=== PATIENT | female | born 1960 | race Caucasian/White ===

== ENCOUNTER 2020-03-01 13:10 | Outpatient (CLI) | payer OTHER, SELFPAY ==
[2020-03-01 13:24] LABS: Basophils Absolute Auto 0.1 K/mm3 (0.0-0.1); Basophils Percent Auto 1.3 % (0.2-1.2); Eosinophils Absolute Auto 0.4 K/mm3 (0-0.3); Hematocrit 45.4 % (37.0-47.0); Hemoglobin 14.9 g/dL (12.0-15.0); Lymphocytes Absolute Auto 1.12 K/mm3 (0.9-3.2); Lymphocytes Percent Auto 28.6 % (18.3-44.2); Mean Corpuscular HGB Conc 32.8 g/dl (32-36); Mean Corpuscular Hemoglobin 35.4 pg (26-34); Mean Corpuscular Volume 107.8 fl (80-100); Monocytes Absolute Auto 0.4 K/mm3 (0.1-0.6); Monocytes Percent Auto 10.7 % (2.6-8.5); Neutrophils Absolute Auto 1.9 K/mm3 (1.3-6.7); Neutrophils Percent Auto 49.4 % (45.5-73.1); Platelet Count Result 219 k/mm3 (150-375); Red Blood Count 4.21 M/mm3 (4.2-5.4); Red Cell Distribution Width 12.3 % (11.5-14.5); White Blood Count 3.9 K/mm3 (4.5-10.0)
[2020-03-01 16:38] LABS: Potassium 4.1 mmol/L (3.4-5.0)
[2020-03-01 16:42] LABS: Alanine Aminotransferase 170 U/L (4-35); Albumin Level 4.6 g/dL (3.5-5.1); Alkaline Phosphatase 75 U/L (38-126); Aspartate Amino Transferase 48 U/L (14-36); Bilirubin,Total 0.4 mg/dL (0.2-1.3); Blood Urea Nitrogen 15 mg/dL (7-17); Calcium 9.8 mg/dL (8.4-10.2); Carbon Dioxide 26 mmol/L (22-30); Chloride 104 mmol/L (98-107); Estimated Glomerular Filt Rate > 60; Glucose 109 mg/dL (65-105); Sodium 137 mmol/L (137-145)
[2020-03-01 17:03] LABS: Carcinoembryonic Antigen 2.5 ng/mL (0.0-3.0)
[2020-03-01 17:26] LABS: Cholesterol 216 mg/dL (0-200); HDL Direct 104 mg/dL; Triglycerides 78 mg/dL (<150)
[2020-03-01 17:39] LABS: LDL Cholesterol Direct 94 mg/dL
== END 2020-03-01 13:11 | disposition home or self-care (01) ==
LOC: ANHLAB 13:12
PROVIDERS: Family Medicine; Visit Provider Internal Medicine Hematology & Oncology
DX: E78.5 Hyperlipidemia, unspecified (principal); C20 Malignant neoplasm of rectum
CPT/HCPCS: 36415; 80053; 80061; 82378; 85025

== ENCOUNTER 2020-06-03 11:28 | Outpatient (CLI) | payer OTHER, SELFPAY ==
[2020-06-03 11:45] LABS: Basophils Absolute Auto 0.1 K/mm3 (0.0-0.1); Basophils Percent Auto 1.8 % (0.2-1.2); Eosinophils Absolute Auto 0.3 K/mm3 (0-0.3); Eosinophils Percent Auto 11.3 % (0-4.4); Hematocrit 44.2 % (37.0-47.0); Hemoglobin 14.8 g/dL (12.0-15.0); Immature Granulocyte Absolute 0.01 K/mm3 (0.00-0.031); Immature Granulocyte Percent A 0.4 % (0-0.5); Lymphocytes Absolute Auto 1.08 K/mm3 (0.9-3.2); Lymphocytes Percent Auto 38.2 % (18.3-44.2); Mean Corpuscular HGB Conc 33.5 g/dl (32-36); Mean Corpuscular Hemoglobin 33.6 pg (26-34); Mean Corpuscular Volume 100.5 fl (80-100); Mean Platelet Volume 9.2 fl (7.4-10.4); Monocytes Absolute Auto 0.4 K/mm3 (0.1-0.6); Monocytes Percent Auto 13.1 % (2.6-8.5); Neutrophils Percent Auto 35.2 % (45.5-73.1); Platelet Count Result 146 k/mm3 (150-375); White Blood Count 2.8 K/mm3 (4.5-10.0)
[2020-06-03 16:38] LABS: Alanine Aminotransferase 30 U/L (4-35); Albumin Level 4.5 g/dL (3.5-5.1); Alkaline Phosphatase 62 U/L (38-126); Anion Gap 14.2 mmol/L (7-16); Aspartate Amino Transferase 57 U/L (14-36); Bilirubin,Total 0.5 mg/dL (0.2-1.3); Blood Urea Nitrogen 14 mg/dL (7-17); Calcium 9.6 mg/dL (8.4-10.2); Carbon Dioxide 29 mmol/L (22-30); Chloride 102 mmol/L (98-107); Estimated Glomerular Filt Rate > 60; Glucose 98 mg/dL (65-105); Potassium 4.2 mmol/L (3.4-5.0); Sodium 141 mmol/L (137-145)
[2020-06-03 17:06] LABS: Carcinoembryonic Antigen 2.3 ng/mL (0.0-3.0)
== END 2020-06-03 11:29 | disposition home or self-care (01) ==
PROVIDERS: PCP Family Medicine; Visit Provider Internal Medicine Hematology & Oncology
DX: E78.5 Hyperlipidemia, unspecified (principal)
CPT/HCPCS: 36415; 80053; 82378; 85025

== ENCOUNTER → 2020-06-18 10:45 | Outpatient (CLI) | payer OTHER, SELFPAY ==
--- NOTE | ~2020-06-18 | XR_ITS ---
EXAMINATION: XR knee RT 2V DATE: 06/18/2020 11:03 INDICATION: Right knee pain. TECHNIQUE: 3 views of right knee were obtained. COMPARISON: None. FINDINGS: Bone alignment is normal. No fracture. There is mild osteoarthritis of patellofemoral rossy rtment. There is a small knee joint effusion. There is prepatellar soft tissue swelling. IMPRESSION: 1. Mild right knee osteoarthritis. 2. Small right knee joint effusion. Reviewed, dictated and finalized at location B.
== END ==
PROVIDERS: PCP Nurse Practitioner Family; Visit Provider Nurse Practitioner Family
DX: M17.11 Unilateral primary osteoarthritis, right knee (principal); M25.461 Effusion, right knee
CPT/HCPCS: 73560

== ENCOUNTER 2020-09-22 10:07 | Outpatient (CLI) | payer OTHER, SELFPAY ==
[2020-09-22 10:29] LABS: Eosinophils Absolute Auto 0.4 K/mm3 (0-0.3); Eosinophils Percent Auto 9.5 % (0-4.4); Hematocrit 44.5 % (37.0-47.0); Hemoglobin 14.7 g/dL (12.0-15.0); Immature Granulocyte Absolute 0.01 K/mm3 (0.00-0.031); Immature Granulocyte Percent A 0.2 % (0-0.5); Lymphocytes Absolute Auto 0.97 K/mm3 (0.9-3.2); Lymphocytes Percent Auto 23.7 % (18.3-44.2); Mean Corpuscular Hemoglobin 36.2 pg (26-34); Mean Corpuscular Volume 109.6 fl (80-100); Mean Platelet Volume 10.5 fl (7.4-10.4); Monocytes Absolute Auto 0.3 K/mm3 (0.1-0.6); Monocytes Percent Auto 7.1 % (2.6-8.5); Neutrophils Absolute Auto 2.4 K/mm3 (1.3-6.7); Neutrophils Percent Auto 58.5 % (45.5-73.1); Platelet Count Result 163 k/mm3 (150-375); Red Blood Count 4.06 M/mm3 (4.2-5.4); Red Cell Distribution Width 12.5 % (11.5-14.5); White Blood Count 4.1 K/mm3 (4.5-10.0)
[2020-09-22 17:53] LABS: Alanine Aminotransferase 105 U/L (4-35); Albumin Level 4.3 g/dL (3.5-5.1); Alkaline Phosphatase 112 U/L (38-126); Anion Gap 9 mmol/L (8-16); Aspartate Amino Transferase 128 U/L (14-36); Bilirubin,Total 0.6 mg/dL (0.2-1.3); Blood Urea Nitrogen 11 mg/dL (7-17); Calcium 10.1 mg/dL (8.4-10.2); Carbon Dioxide 28 mmol/L (22-30); Chloride 102 mmol/L (98-107); Estimated Glomerular Filt Rate > 60; Glucose 117 mg/dL (65-105); Potassium 4.6 mmol/L (3.4-5.0); Sodium 139 mmol/L (137-145)
[2020-09-22 18:21] LABS: Carcinoembryonic Antigen 3.2 ng/mL (0.0-3.0)
[2020-09-22 18:28] LABS: Hepatitis B Surface Antigen Negative (Negative)
[2020-09-22 18:33] LABS: HAV RESULT Negative (Negative); Hepatitis B Core IgM Result Negative (Negative)
[2020-09-22 18:45] LABS: Hepatitis C Virus Antibody Negative (Negative)
== END 2020-09-22 10:08 | disposition home or self-care (01) ==
LOC: ANHLAB 10:09
PROVIDERS: PCP Nurse Practitioner Family; Visit Provider Internal Medicine Hematology & Oncology
DX: C20 Malignant neoplasm of rectum (principal); R94.5 Abnormal results of liver function studies
CPT/HCPCS: 36415; 80053; 80074; 82378; 85025

== ENCOUNTER 2020-12-02 10:49 | Outpatient (CLI) | payer OTHER, SELFPAY ==
[2020-12-02 11:15] LABS: Basophils Percent Auto 1.1 % (0.2-1.2); Eosinophils Absolute Auto 0.5 K/mm3 (0-0.3); Eosinophils Percent Auto 14.2 % (0-4.4); Hematocrit 45.5 % (37.0-47.0); Hemoglobin 15.2 g/dL (12.0-15.0); Immature Granulocyte Absolute 0.01 K/mm3 (0.00-0.031); Immature Granulocyte Percent A 0.3 % (0-0.5); Lymphocytes Absolute Auto 1.16 K/mm3 (0.9-3.2); Lymphocytes Percent Auto 30.5 % (18.3-44.2); Mean Corpuscular HGB Conc 33.4 g/dl (32-36); Mean Corpuscular Hemoglobin 34.2 pg (26-34); Mean Corpuscular Volume 102.5 fl (80-100); Mean Platelet Volume 10.2 fl (7.4-10.4); Monocytes Absolute Auto 0.3 K/mm3 (0.1-0.6); Monocytes Percent Auto 7.6 % (2.6-8.5); Neutrophils Absolute Auto 1.8 K/mm3 (1.3-6.7); Neutrophils Percent Auto 46.3 % (45.5-73.1); Platelet Count Result 172 k/mm3 (150-375); Red Blood Count 4.44 M/mm3 (4.2-5.4); Red Cell Distribution Width 12.1 % (11.5-14.5); White Blood Count 3.8 K/mm3 (4.5-10.0)
[2020-12-02 13:43] LABS: Alanine Aminotransferase 30 U/L (4-35); Albumin Level 4.1 g/dL (3.5-5.1); Alkaline Phosphatase 57 U/L (38-126); Anion Gap 6 mmol/L (8-16); Aspartate Amino Transferase 38 U/L (14-36); Bilirubin,Total 0.5 mg/dL (0.2-1.3); Blood Urea Nitrogen 16 mg/dL (7-17); Calcium 9.8 mg/dL (8.4-10.2); Carbon Dioxide 28 mmol/L (22-30); Chloride 104 mmol/L (98-107); Estimated Glomerular Filt Rate > 60; Glucose 135 mg/dL (65-105); Sodium 138 mmol/L (137-145)
[2020-12-02 14:12] LABS: Carcinoembryonic Antigen 2.5 ng/mL (0.0-3.0)
== END 2020-12-02 10:50 | disposition home or self-care (01) ==
LOC: ANHLAB 10:50
PROVIDERS: PCP Nurse Practitioner Family; Visit Provider Internal Medicine Hematology & Oncology
DX: C20 Malignant neoplasm of rectum (principal)
CPT/HCPCS: 36415; 80053; 82378; 85025

== ENCOUNTER 2021-03-01 13:07 | Outpatient (CLI) | payer OTHER, SELFPAY | END 2021-03-01 13:08 | disposition home or self-care (01) | LOC: ANHCOVIDVC 13:07 | PROVIDERS: PCP Internal Medicine | DX: Z23 Encounter for immunization (principal) | CPT/HCPCS: 0001A; 91300 ==

== ENCOUNTER 2021-03-22 12:45 | Outpatient (CLI) | payer OTHER, SELFPAY | END 2021-03-22 12:46 | disposition home or self-care (01) | LOC: ANHCOVIDVC 12:46 | PROVIDERS: PCP Internal Medicine | DX: Z23 Encounter for immunization (principal) | CPT/HCPCS: 0002A; 91300 ==

== ENCOUNTER 2021-05-30 14:10 | Outpatient (CLI) | payer OTHER, SELFPAY ==
[2021-05-30 14:29] LABS: Basophils Absolute Auto 0.1 K/mm3 (0.0-0.1); Basophils Percent Auto 1.3 % (0.2-1.2); Eosinophils Absolute Auto 0.4 K/mm3 (0-0.3); Eosinophils Percent Auto 9.6 % (0-4.4); Hematocrit 42.6 % (37.0-47.0); Hemoglobin 14.5 g/dL (12.0-15.0); Lymphocytes Absolute Auto 1.31 K/mm3 (0.9-3.2); Lymphocytes Percent Auto 33.1 % (18.3-44.2); Mean Corpuscular Hemoglobin 32.4 pg (26-34); Mean Corpuscular Volume 95.1 fl (80-100); Mean Platelet Volume 9.3 fl (7.4-10.4); Monocytes Absolute Auto 0.3 K/mm3 (0.1-0.6); Monocytes Percent Auto 8.1 % (2.6-8.5); Neutrophils Absolute Auto 1.9 K/mm3 (1.3-6.7); Neutrophils Percent Auto 47.9 % (45.5-73.1); Platelet Count Result 174 k/mm3 (150-375); Red Blood Count 4.48 M/mm3 (4.2-5.4)
[2021-05-30 16:48] LABS: Alanine Aminotransferase 45 U/L (4-35); Albumin Level 4.2 g/dL (3.5-5.1); Alkaline Phosphatase 72 U/L (38-126); Anion Gap 8 mmol/L (8-16); Aspartate Amino Transferase 56 U/L (14-36); Bilirubin,Total 0.3 mg/dL (0.2-1.3); Blood Urea Nitrogen 13 mg/dL (7-17); Calcium 9.4 mg/dL (8.4-10.2); Carbon Dioxide 28 mmol/L (22-30); Chloride 99 mmol/L (98-107); Estimated Glomerular Filt Rate > 60; Glucose 103 mg/dL (65-110); Potassium 4.2 mmol/L (3.4-5.0); Sodium 135 mmol/L (137-145)
[2021-05-30 17:15] LABS: Carcinoembryonic Antigen 2.1 ng/mL (0.0-3.0)
== END 2021-05-30 14:11 | disposition home or self-care (01) ==
LOC: ANHLAB 14:16
PROVIDERS: PCP Internal Medicine; Visit Provider Internal Medicine Hematology & Oncology
DX: C20 Malignant neoplasm of rectum (principal)
CPT/HCPCS: 36415; 80053; 82378; 85025

== ENCOUNTER 2021-08-02 13:47 | Outpatient (CLI) | payer OTHER, SELFPAY ==
--- NOTE | ~2021-08-02 | DEXA_ITS ---
Bone Density Report Name: Nisreen Gan Age: 61 Sex: Female Ethnicity: White Date of : 1960 Indication: postmenopausal; height loss; prior fracture; cancer; Referring Provider: Janet Wong Study: Bone densitometry was performed. Exam Date: August 02, 2021 Accession number: [id number] Bone Density: Region BMD T-score Z-score Classification AP Spine (L1-L4) 1.224 1.6 3.3 Normal Femoral Neck (Left) 0.726 -1.1 0.3 Osteopenia Total Hip (Left) 0.917 -0.2 0.9 Normal Total Hip Bilateral Avg 0.920 -0.2 0.9 Normal Femoral Neck (Right) 0.738 -1.0 0.4 Normal Total Hip (Right) 0.922 -0.2 1.0 Normal World Health Organization criteria for BMD impression classify patients as: Normal (T-score at or above -1.0), Osteopenia (T-score between -1.0 and -2.5), or Osteoporosis (T-score at or below -2.5). 10-year Fracture Risk(1): Major Osteoporotic Fracture 12% Hip Fracture 0.9% Reported Risk Factors: [place] (), Neck BMD=0.726, BMI=21.6, previous fracture (1) FRAX(R) Version 3.08. Fracture probability calculated for an untreated patient. Fracture probability may be lower if the patient has received treatment. Clinical Information Provided by Patient: Has had a low trauma fracture Has used the following medications: Vitamin D Has the following medical conditions: Cancer Patient maximum height was 68 Menopause Age: 48 Onset of menses at age 11 Number of children 1 Impression: The patient has low bone mass, based on the Left Femoral Neck T-score. The patient has an estimated ten-year risk of hip fracture of 0.9% and an estimated ten-year risk of major fracture of 12%, based on the WHO FRAX algorithm. The patient has risk factors, including: previous fracture. Discussion: BONE DENSITY IS LOW AT ONE OR MORE SKELETAL SITES. This patient's lowest T-score is low at one or more skeletal sites. It meets the World Health Organization's (WHO) criteria for ?low bone mass? (T-score between -1.0 and -2.5). The patient's 10-year risk of fracture as calculated by FRAX is less than the threshold where pharmacological therapy is recommended by the National Osteoporosis Foundation (NOF). However, all treatment decisions require clinical judgment and consideration of individual patient factors, including patient preferences, comorbidities, previous drug use, risk factors not captured in the FRAX model (e.g., frailty, falls, vitamin D deficiency, increased bone turnover, interval significant decline in bone density) and possible under or overestimation of fracture risk by FRAX. The patient should follow a healthful lifestyle (good nutrition with adequate calcium and vitamin D, and appropriate weight-bearing exercise). Follow-Up: Consider repeating this study in 2 to 3 years to reassess this patient's status, or sooner if
--- NOTE | ~2021-08-02 | MM_ITS ---
CORRECTED REPORT EXAMINATION CHANGED TO MM screening [facility] 08/03/2021 sef EXAMINATION: MM screening [facility] BI w [facility] HISTORY: Screening TECHNIQUE: Craniocaudal and mediolateral oblique 3-D tomosynthesis images were obtained and synthetic 2-D images were generated. CAD analysis was submitted and interpreted. COMPARISON: 08/19/2018 BREAST PARENCHYMAL COMPOSITION: There are scattered areas of fibroglandular density. FINDINGS: There is no evidence of suspicious mass, calcification, or architectural distortion to suggest malignancy in either breast. There has been no suspicious interval change. IMPRESSION: 1. No mammographic evidence of malignancy. 2. Recommend routine screening mammography in one year. BI-RADS Category 1: Negative Reviewed, dictated and finalized at location A. MTDD
== END 2021-08-02 13:48 | disposition home or self-care (01) ==
LOC: ANHIMG 13:50
PROVIDERS: PCP Internal Medicine; Visit Provider Nurse Practitioner Family
DX: Z12.31 Encounter for screening mammogram for malignant neoplasm of breast (principal); Z78.0 Asymptomatic menopausal state; M85.852 Other specified disorders of bone density and structure, left thigh
CPT/HCPCS: 77063; 77067; 77080

== ENCOUNTER 2022-03-07 12:45 | Outpatient (CLI) | payer OTHER, SELFPAY ==
[2022-03-07 13:08] LABS: Basophils Absolute Auto 0.1 K/mm3 (0.0-0.1); Basophils Percent Auto 0.9 % (0.2-1.2); Eosinophils Absolute Auto 0.5 K/mm3 (0-0.3); Eosinophils Percent Auto 8.4 % (0-4.4); Hemoglobin 15.3 g/dL (12.0-15.0); Immature Granulocyte Absolute 0.01 K/mm3 (0.00-0.031); Immature Granulocyte Percent A 0.2 % (0-0.5); Lymphocytes Absolute Auto 1.05 K/mm3 (0.9-3.2); Lymphocytes Percent Auto 19.6 % (18.3-44.2); Mean Corpuscular HGB Conc 31.9 g/dl (32-36); Mean Corpuscular Hemoglobin 33.5 pg (26-34); Monocytes Absolute Auto 0.4 K/mm3 (0.1-0.6); Monocytes Percent Auto 7.8 % (2.6-8.5); Neutrophils Absolute Auto 3.4 K/mm3 (1.3-6.7); Neutrophils Percent Auto 63.1 % (45.5-73.1); Platelet Count Result 183 k/mm3 (150-375); Red Blood Count 4.57 M/mm3 (4.2-5.4); Red Cell Distribution Width 13.6 % (11.5-14.5); White Blood Count 5.4 K/mm3 (4.5-10.0)
[2022-03-07 17:39] LABS: Alanine Aminotransferase 28 U/L (4-35); Albumin Level 4.7 g/dL (3.5-5.1); Alkaline Phosphatase 57 U/L (38-126); Anion Gap 6 mmol/L (8-16); Aspartate Amino Transferase 41 U/L (14-36); Bilirubin,Total 0.3 mg/dL (0.2-1.3); Blood Urea Nitrogen 11 mg/dL (7-17); Calcium 9.9 mg/dL (8.4-10.2); Carbon Dioxide 26 mmol/L (22-30); Chloride 108 mmol/L (98-107); Estimated Glomerular Filt Rate > 60; Glucose 116 mg/dL (65-110); Potassium 4.9 mmol/L (3.4-5.0); Sodium 140 mmol/L (137-145)
[2022-03-07 18:24] LABS: Carcinoembryonic Antigen 1.9 ng/mL (0.0-3.0)
== END 2022-03-07 12:46 | disposition home or self-care (01) ==
LOC: ANHLAB 12:46
PROVIDERS: PCP Internal Medicine; Visit Provider Internal Medicine Hematology & Oncology
DX: C20 Malignant neoplasm of rectum (principal)
CPT/HCPCS: 36415; 80053; 82378; 85025

== ENCOUNTER 2022-10-17 14:46 | Outpatient (CLI) | payer OTHER, SELFPAY ==
--- NOTE | ~2022-10-17 | MM_ITS ---
EXAMINATION: MM screening [facility] HISTORY: Screening TECHNIQUE: Craniocaudal and mediolateral oblique 3-D tomosynthesis images were obtained and synthetic 2-D images were generated. CAD analysis was submitted and interpreted. COMPARISON: Comparison to multiple prior studies sequentially, with oldest reviewed study dated 08/05. BREAST PARENCHYMAL COMPOSITION: There are scattered areas of fibroglandular density. FINDINGS: There is no evidence of suspicious mass, calcification, or architectural distortion to sugg est malignancy in either breast. There has been no suspicious interval change. IMPRESSION: 1. No mammographic evidence of malignancy. 2. Recommend routine screening mammography in one year. BI-RADS Category 1: Negative Reviewed, dictated and finalized at location B. FABRICATOR
== END 2022-10-17 14:47 | disposition home or self-care (01) ==
PROVIDERS: PCP Family Medicine; Visit Provider Nurse Practitioner Family
DX: Z12.31 Encounter for screening mammogram for malignant neoplasm of breast (principal)
CPT/HCPCS: 77063; 77067

== ENCOUNTER 2022-12-11 12:39 | Outpatient (CLI) | payer OTHER, SELFPAY ==
[2022-12-11 12:52] LABS: Basophils Absolute Auto 0.1 K/mm3 (0.0-0.1); Basophils Percent Auto 1.1 % (0.2-1.2); Eosinophils Absolute Auto 0.4 K/mm3 (0-0.3); Eosinophils Percent Auto 7.6 % (0-4.4); Hematocrit 45.3 % (37.0-47.0); Hemoglobin 15.4 g/dL (12.0-15.0); Immature Granulocyte Absolute 0.02 K/mm3 (0.00-0.031); Immature Granulocyte Percent A 0.4 % (0-0.5); Lymphocytes Percent Auto 27.9 % (18.3-44.2); Mean Corpuscular Hemoglobin 30.9 pg (26-34); Mean Platelet Volume 9.6 fl (7.4-10.4); Monocytes Absolute Auto 0.4 K/mm3 (0.1-0.6); Monocytes Percent Auto 7.4 % (2.6-8.5); Neutrophils Percent Auto 55.6 % (45.5-73.1); Platelet Count Result 213 k/mm3 (150-375); Red Blood Count 4.98 M/mm3 (4.2-5.4); White Blood Count 5.4 K/mm3 (4.5-10.0)
[2022-12-11 15:44] LABS: Alanine Aminotransferase 23 U/L (6-35); Albumin Level 4.4 g/dL (3.5-5.1); Alkaline Phosphatase 59 U/L (38-126); Anion Gap 7 mmol/L (8-16); Aspartate Amino Transferase 30 U/L (14-36); Bilirubin,Total 0.6 mg/dL (0.2-1.3); Blood Urea Nitrogen 14 mg/dL (7-17); Calcium 9.6 mg/dL (8.4-10.2); Carbon Dioxide 31 mmol/L (22-30); Chloride 103 mmol/L (98-107); Estimated Glomerular Filt Rate > 60; Glucose 100 mg/dL (65-110); Potassium 4.6 mmol/L (3.4-5.0); Sodium 141 mmol/L (137-145)
[2022-12-11 16:09] LABS: Carcinoembryonic Antigen 1.8 ng/mL (0.0-3.0)
== END 2022-12-11 12:40 | disposition home or self-care (01) ==
LOC: ANHLAB 12:41
PROVIDERS: PCP Family Medicine; Visit Provider Internal Medicine Hematology & Oncology
DX: C20 Malignant neoplasm of rectum (principal)
CPT/HCPCS: 36415; 80053; 82378; 85025

== ENCOUNTER 2023-12-03 12:54 | Outpatient (CLI) | payer MEDICARE, OTHER, SELFPAY ==
[2023-12-03 13:16] LABS: Basophils Absolute Auto 0.1 K/mm3 (0.0-0.1); Basophils Percent Auto 1.1 % (0.2-1.2); Eosinophils Absolute Auto 0.3 K/mm3 (0-0.3); Hematocrit 45.6 % (37.0-47.0); Hemoglobin 15.4 g/dL (12.0-15.0); Immature Granulocyte Absolute 0.01 K/mm3 (0.00-0.031); Immature Granulocyte Percent A 0.2 % (0-0.5); Lymphocytes Absolute Auto 1.32 K/mm3 (0.9-3.2); Lymphocytes Percent Auto 23.8 % (18.3-44.2); Mean Corpuscular HGB Conc 33.8 g/dl (32-36); Mean Corpuscular Hemoglobin 32.3 pg (26-34); Mean Corpuscular Volume 95.6 fl (80-100); Mean Platelet Volume 9.9 fl (7.4-10.4); Monocytes Absolute Auto 0.3 K/mm3 (0.1-0.6); Monocytes Percent Auto 4.7 % (2.6-8.5); Neutrophils Absolute Auto 3.6 K/mm3 (1.3-6.7); Neutrophils Percent Auto 65.2 % (45.5-73.1); Platelet Count Result 205 k/mm3 (150-375); Red Blood Count 4.77 M/mm3 (4.2-5.4); Red Cell Distribution Width 12.3 % (11.5-14.5); White Blood Count 5.6 K/mm3 (4.5-10.0)
[2023-12-03 14:02] LABS: Alanine Aminotransferase 26 U/L (6-35); Albumin Level 4.5 g/dL (3.5-5.1); Alkaline Phosphatase 48 U/L (38-126); Anion Gap 7 mmol/L (8-16); Aspartate Amino Transferase 38 U/L (14-36); Bilirubin,Total 0.4 mg/dL (0.2-1.3); Blood Urea Nitrogen 6 mg/dL (7-17); Calcium 9.8 mg/dL (8.4-10.2); Carbon Dioxide 28 mmol/L (22-30); Chloride 109 mmol/L (98-107); Estimated Glomerular Filt Rate > 60; Glucose 120 mg/dL (65-110); Sodium 144 mmol/L (137-145)
[2023-12-03 14:32] LABS: Carcinoembryonic Antigen 2.2 ng/mL (0.0-3.0)
== END 2023-12-03 12:55 | disposition home or self-care (01) ==
LOC: ANHLAB 12:58
PROVIDERS: PCP Family Medicine; Visit Provider Internal Medicine Hematology & Oncology
DX: C20 Malignant neoplasm of rectum (principal)
CPT/HCPCS: 36415; 80053; 82378; 85025

== ENCOUNTER 2024-02-25 14:02 | Outpatient (CLI) | payer MEDICARE, OTHER, SELFPAY ==
--- NOTE | ~2024-02-25 | MM_ITS ---
EXAMINATION: MM screening [facility] HISTORY: Screening mammogram TECHNIQUE: Craniocaudal and mediolateral oblique 3-D tomosynthesis images were obtained and synthetic 2-D images were generated. CAD analysis was submitted and interpreted. COMPARISON: 10/17/2022, 08/02/2021 bilateral screening mammogram examinations BREAST PARENCHYMAL COMPOSITION: There are scattered areas of fibroglandular density. FINDINGS: There is no evidence of suspicious mass, calcification, or architectural distortion to sugg est malignancy in either breast. There has been no suspicious interval change. IMPRESSION: 1. No mammographic evidence of malignancy. 2. Recommend routine screening mammography in one year. BI-RADS Category 1: Negative Reviewed, dictated and finalized at location A.
== END 2024-02-25 14:03 | disposition home or self-care (01) ==
LOC: ANHIMG 14:04
PROVIDERS: PCP Family Medicine; Visit Provider Family Medicine
DX: Z12.31 Encounter for screening mammogram for malignant neoplasm of breast (principal)
CPT/HCPCS: 77063; 77067

== ENCOUNTER 2024-05-20 14:19 | Emergency (ER) | payer MEDICARE, OTHER, SELFPAY ==
--- NOTE | ~2024-05-20 | XR_ITS ---
EXAM: XR shoulder LT min 2V DATE: 05/20/2024 14:57 HISTORY: fall NON SPECIFIC LEFT SHOULDER AND RIB PAIN . COMPARISON: None available. FINDINGS: Normal mineralization. Oblique fracture of the distal left clavicle, with 2 mm inferior di splacement. No lytic or blastic lesion. Mild AC joint and moderate glenohumeral joint degenerative ch katerin. No erosion or periosteal change. Soft tissues within normal limits. IMPRESSION: Oblique fracture of the distal left clavicle with minimal inferior displacement of the di stal fragment. Reviewed, dictated and finalized at location K. IMPRESSION: Oblique fracture of the distal left clavicle with minimal inferior displacement of the distal fragment.
--- NOTE | ~2024-05-20 | XR_ITS ---
EXAMINATION: XR ribs LT 2V w CXR 2V Exam Date/Time: 05/20/2024 14:40 CDT HISTORY: fall Comparison: 11/23/2018. RESULT: Lines, tubes, and devices: None. Lungs and pleura: Clear. Cardiothymic silhouette: Stable. Other: No acute upper abdominal finding. Acute, oblique fracture of the distal left clavicle with mi nimal inferior displacement. Old distal right clavicular fracture, healed in deformity. IMPRESSION: No acute cardiopulmonary process. No acute osseous finding the left ribs. Acute oblique fracture of t he distal left clavicle. Reviewed, dictated and finalized at location K. IMPRESSION: No acute cardiopulmonary process. No acute osseous finding the left ribs. Acute oblique fracture of the distal left clavicle.
[2024-05-20 14:26] VITALS: BP 109/66; PULSE 105; RESP 18; TEMP 36.6; O2SAT 100
--- NOTE | 2024-05-20 15:35 | ED.FALL ---
HPI - Fall General Chief Complaint: Fall Stated Complaint: fall Sunday night-left shoulder pain Time Seen by Provider: 05/20/24 14:49 Source: patient Mode of arrival: ambulatory Limitations: no limitations History of Present Illness HPI Narrative: This is a 64 year old female that presents to the ER for left shoulder pain after injury Sunday night. Reports she tripped over her dog. Fell onto her left side. Since she has had left shoulder and rib pain. She did not hit her head or lose consciousness. She has been taking her prescribed pain medication with little relief. Reports decreased ROM. Denies numbness. Related Data Home Medications Medication Instructions Recorded Confirmed hydrocodone 10 mg-acetaminophen 1 tablet PO Q8H PRN 09/15/19 05/01/24 325 mg tablet cholecalciferol (vitamin D3) 125 125 mcg PO DAILY 01/02/20 05/01/24 mcg (5,000 unit) tablet fluticasone propionate 50 1 spray intranasal DAILY 01/02/20 05/01/24 mcg/actuation nasal spray,suspension multivitamin 1 tablet PO DAILY 01/02/20 05/01/24 aspirin 81 mg tablet,delayed 81 mg PO DAILY 01/05/20 05/01/24 release (Adult Aspirin Regimen) loperamide 2 mg capsule (Imodium 2 mg PO DAILY 01/05/20 05/01/24 A-D) colesevelam 625 mg tablet (WelChol) 1,250 mg PO BID 06/18/20 05/01/24 tizanidine 2 mg tablet 2 mg PO BID PRN 03/19/23 05/01/24 Allergies Allergy/AdvReac Type Severity Reaction Status Date / Time No Known Allergies Allergy Unverified 05/20/24 14:20 Review of Systems Review of Systems: CONSTITUTIONAL: Denies fever MUSCULOSKELETAL: Reports joint pain, and myalgia. NEUROLOGIC: Denies numbness, or weakness. All systems reviewed & are unremarkable except as noted in HPI and below PMFSH Past Medical History Medical History Asthma Chronic diarrhea Dyspareunia in female Generalized anxiety disorder History of carcinoma in situ of rectum (~2015) Hyperlipidemia Osteopenia Peripheral neuropathy due to chemotherapy (~2015) follows w/ [facility] Screening breast examination Tibia and fibula open fracture, right Urinary incontinence since radiation in 2016 Well woman exam (no gynecological exam) Surgical History Surgical History H/O ileostomy (~2015) History of ankle surgery Right 03/2021 Seun and Screws removed 04/2023 History of open reduction and internal fixation (ORIF) procedure (~03/2021) Rt Tib-Fib History of rectal surgery 2016 Family History Family History Mother Family history of alcoholism Family history of malignant neoplasm of breast in first degree relative Social History Social History Smoking packs per day: 1 Smoking cigarettes per day: 20.0 Years smoked: 20 Smoking pack-years: 20.00 Smoking status: Former smoker Second hand tobacco smoke exposure: No Alcohol intake: current Drinks per week: 8 Substance use: never Lack of Transportation: No Lack of Food: Never True Current Housing: I Have Housing Concerned About Future Housing: No Difficulty Paying Gas/Electric Bills: No Difficulty Paying for Meds: No Currently Unemployed: No Education: Bachelor's Degree Difficulty w/ Childcare or Family Care: No Living arrangements: with family Occupation/Education: retired Gender identity (if verbalized by the patient): Female Agree to blood products: Yes Exam Narrative: GENERAL: Well-appearing, well-nourished, and in no acute distress. HEAD: Normocephalic, atraumatic. EYES: EOMI. CHEST: Clear to auscultation. No respiratory distress. No wheezes rales or rhonchi HEART: Regular rate and rhythm. No murmur heard. Normal peripheral pulses. EXTREMITIES: Decreased active ROM in the left shoulder due to pain with swelling to the left distal clavicle. Normal radial pulse.
== END 2024-05-20 16:06 | disposition home or self-care (01) ==
LOC: ANHED 15:49
PROVIDERS: Emergency Provider Physician Assistant; PCP Nurse Practitioner Family
DX: S42.033A Displaced fracture of lateral end of unspecified clavicle, initial encounter for closed fracture (principal); J45.909 Unspecified asthma, uncomplicated; F41.9 Anxiety disorder, unspecified; E78.5 Hyperlipidemia, unspecified; W01.0XXA Fall on same level from slipping, tripping and stumbling without subsequent striking against object, initial encounter
CPT/HCPCS: 71046; 71100; 73030; 99284; A4565

== ENCOUNTER 2024-12-09 12:37 | Outpatient (CLI) | payer MEDICARE, OTHER, SELFPAY ==
--- OUTSIDE RECORDS SUMMARY | 2024-12-09 12:42 | XMS_ITS | Clinical Summary ---
Author Organization [facility] Address [address] [place] [address] Care Team Providers Care Hosting Engineer Name Role Phone Jeff Beckford MD Primary Care Provider [phone] Allergies No known active allergies Medications escitalopram oxalate (LEXAPRO) 10 mg tablet Take by mouth. 6 Active estradiol (ESTRACE) 0.01% (0.1 mg/g) vaginal cream INSERT 1/2 GRAM INTO VAGINA THREE TIMES PER WEEK AT BEDTIME, ALSO USE PEA SIZED AMOUNT TO EXTERNAL GENITALIA 3 TIMES WEEKLY 8 Active fluticasone (FLONASE) 50 mcg/spray [place], Suspension 1-2 SPRAYS INTO EACH NOSTRIL DAILY NEEDED 6 Active albuterol HFA 90 mcg inhaler Take by inhalation. 6 Active gabapentin (NEURONTIN) 600 mg tablet TK 1 T PO 4 XD 0 8 Active diphenoxylate-a tropine 2.5-0.025 mg tablet TK 1 T PO QID PRF DIARRHEA 3 8 Active Multivitamin Capsule Take 1 Capsule by mouth. Active loperamide (IMODIUM) 2 mg capsule 0 Active cyanocobalamin (VITAMIN B-12) 250 mcg Tablet Take 250 mcg by mouth. Active aspirin (ECOTRIN EC) 81 mg Tablet, Delayed Release (E.C.) Take 81 mg by mouth. Active alendronate-vit figueroa D3 (FOSAMAX PLUS D) 70-2,800 mg-unit tablet Take 1 Tablet by mouth. Active colesevelam (WELCHOL) 625 mg Tablet Take 1,875 mg by mouth. 0 Active tiZANidine (ZANAFLEX) 4 mg Tablet TAKE 1 TABLET BY MOUTH EVERY DAY NEEDED 3 Active HYDROcodone-patt taminophen (NORCO) 10-325 mg TabletIndicatio ns:Rectal cancer (CMS/HCC) Take 1 Tablet by mouth every 6 hours as needed for Pain, Moderate. Max Daily Amount: 4 Tablets 10 Tablet 4 Active Active Problems Problem Noted Date Diagnosed Date Leukopenia 06/14/2020 Elevated liver enzymes 03/11/2020 Rectal cancer 08/05/2018 Encounters Date Type Department Care Team Description 12/03/2024 Orders Only Initial Department [address] [place]: [place] [address] Provider, Historical 11/26/2024 External Device Data [facility] ABSTRACTION Provider, Abstract 11/25/2024 External Device Data [facility] Provider, Abstract 11/18/2024 External Device Data [facility] Provider, Abstract from Last 3 Months Family History Medical History Relation Name Comments No Known Problems Brother 1 No Known Problems Brother 2 No Known Problems Father Breast Cancer Mother at age 82 Relation Name Status Comments Brother 1 Alive Brother 2 Father Mother at age 82 Social History Tobacco Use Types Packs/Day Years Used Date Smoking Tobacco: Former Cigarettes 1 15 1 - 1994 Smokeless Tobacco: Never Tobacco Cessation:Counseling Given: Not Answered Alcohol Use Standard Drinks/Week Comments Yes 0 (1 standard drink = 0.6 oz pur e alcohol) Comments No Sex and Gender Information Value Date Recorded Sex Assigned at Not on file Legal Sex Female 11:51 AM CDT Gender Identity Not on file Sexual Orientation Not on file Last Filed Vital Signs Vital Sign Reading Time Taken Comments Blood Pressure 180/117 12/13/2023 1:03 PM RESPIRATORY SUPPORT TECHNICIAN Pulse 116 12/13/2023 1:01 PM RESPIRATORY SUPPORT TECHNICIAN Temperature 35.9 ??C (96.7 ??F) 12/13/2023 1:01 PM CS T Respiratory Rate 14 12/13/2023 1:01 PM RESPIRATORY SUPPORT TECHNICIAN Oxygen Saturation 96% 12/13/2023 1:01 PM RESPIRATORY SUPPORT TECHNICIAN Inhaled Oxygen Concentration - - Weight 62.1 kg (137 lb) 12/13/2023 1:01 PM RESPIRATORY SUPPORT TECHNICIAN Height 172.7 cm (5' 8 ) 03/13/2022 2:36 PM CDT Body Mass Index 20.83 03/13/2022 2:36 PM CDT Plan of Treatment Upcoming Encounters Date Type Department Care Team (Late st Contact Info) Description 12/15/2024 1:15 PM RESPIRATORY SUPPORT TECHNICIAN Office Visit [facility] Oncology and Hematology - [place] [address] [place] [address] Nick Louis MD [address] [place] [address] Health Maintenance Due Date Last Done Comments Traditional Medicare (ACO) A nnual Wellness Visit 1977 BREAST CANCER SCREENING 1998 PNEUMOCOCCAL VACCINE 65+ YEA RS (1 of 1 - PCV) 2008 ZOSTER VACCINE (1 of 2) 2008 INFLUENZA VACCINE (#1) 2024 1, 08/06/2020, 07/20/2020, Additional history exists DTAP/TDAP/TD VACCINES (2 - T d or Tdap) 11/05/2028 11/05/2018 RSV VACCINE (60+ or ) (1 - 1-dose 75+ series) 2033 OSTEOPOROSIS SCREENING Completed 4, 05/10/2023, 05/10/2023, Additional history exists Procedures Procedure Name Priority Date/Time Associated Diagnosis Comments CEA Routine 12/03/2024 10:23 AM RESPIRATORY SUPPORT TECHNICIAN from Last 3 Months Results * CEA (12/03/2024 10:23 AM RESPIRATORY SUPPORT TECHNICIAN) CEA <2.0 See Note: ng/mL [facility] Comment: Reference Range: Non-Smoker: <2.5 Smoker: ? <5.0 This test was performed using the Siemens chemiluminescent method. Values obtained from different assay methods cannot be used interchangeably. CEA levels, regardless of value, should not be interpreted as absolute evidence of the presence or absence of disease. FASTING:NO AN UPDATE OR CORRECTION HAS BEEN MADE TO NAME FASTING: NO Test Performed at: [facility] [id number] ??[id number] Berta Davenport MD 12/03/2024 10:2 3 AM RESPIRATORY SUPPORT TECHNICIAN 12/03/2024 10:24 AM RESPIRATORY SUPPORT TECHNICIAN Nick Louis MD CHEMISTRY ORDERABLES Final Resu lt [facility] [phone] [facility] [id number] [phone] from Last 3 Months Insurance MEDICARE PART A AND B MERGED WITH [facility] Care Teams Hosting Engineer Relationship Specialty Start Date End Date Jeff Beckford MD [address] [place] [address] PCP - General Family Practice 08/05/18
--- OUTSIDE RECORDS SUMMARY | 2024-12-09 12:42 | XMS_ITS | Referral Summary ---
Author Organization [facility] Address [address] [place] [address] Care Team Providers Care Senior Supplier Quality Engineer Name Role Phone Brooklynn Grover MD Primary Care Provider [phone] Immunizations Name Administration Dates Next Due Influenza, split virus, quadrivalent, PF 017,11/18/2015 Influenza, split virus, trivalent 08/31/2013 Tdap 10/24/2011 Social History Tobacco Use Types Packs/Day Years Used Date Smoking Tobacco: Never Assessed Inadequate Housing Answer Date Recorded Social Determinants: Housing (Overall Score Help er) 0 07/05/2019 Sex and Gender Information Value Date Recorded Sex Assigned at Not on file Gender Identity Not on file Sexual Orientation Not on file Last Filed Vital Signs Vital Sign Reading Time Taken Comments Blood Pressure 92/60 06/18/2018 8:00 AM CDT Pulse 105 06/18/2018 8:00 AM CDT Temperature 36.8 ??C (98.3 ??F) 06/18/2018 8:00 AM CD T Respiratory Rate 18 06/18/2018 8:00 AM CDT Oxygen Saturation 98% 06/18/2018 8:00 AM CDT Inhaled Oxygen Concentration - - Weight 62.5 kg (137 lb 12.6 oz) 06/18/2018 8:00 AM CDT Height 172.7 cm (5' 8 ) 06/18/2018 8:00 AM CDT Body Mass Index 20.95 06/18/2018 8:00 AM CDT Plan of Treatment Not on file Procedures Procedure Name Priority Date/Time Associated Diagnosis Comments MAMMO SCREENING BILATERAL Routine 10/02/2017 11:05 AM VP CARDIOVASCULAR from Last 3 Months or Most Recently Relevant to Health Maintenance Results * MA MAMMO SCREENING BILATERAL (10/02/2017 11:05 AM VP CARDIOVASCULAR) Anatomical Region Laterality Modality Breast Bilateral Mammography 10/02/2017 11:0 5 AM VP CARDIOVASCULAR 10/02/2017 11:05 AM VP CARDIOVASCULAR Narrative 10/02/2017 2:29 PM VP CARDIOVASCULAR #[id number] - MA FFDM SCREEN W CAD LUCIUS BILATERAL DIGITAL SCREENING MAMMOGRAM WITH CAD: 10/02/2017 CLINICAL HISTORY:Routine annual screening mammogram. COMPARISON: Comparison is made to exams dated: ??09/26/2016 mammogram, 08/24/2015 mammogram, 07/29/2014 mammogram, and 07/15/2013 mammogram - [facility]. FINDINGS: There are scattered fibroglandular elements in both breasts. There is a benign focal asymmetry and a calcification in the left breast. ??There also are benign calcifications in the right breast. No significant masses, calcifications, or other findings are seen in either breast. Current study was also evaluated with a Computer Aided Detection (CAD) system. There has been no significant interval change. IMPRESSION: BENIGN There is no mammographic evidence of malignancy. A 1 year screening mammogram is recommended. MAMMOGRAPHY BI-RADS: 2 BENIGN Brian Lyn M.D. ag/penrad:10/02/2017 12:30:50 Installment Loan Collector: Enriqueta ??RT Madhavi(R)(M), [facility] letter sent: Normal Single Exam [id number] ??FINAL ?? Dictated By: ? RBIAN RICHARD MD Electronically Reviewed and Approved By: ?BRIAN RICHARD MD COMMENT Result Annotated 10/02/2017 14:29 by BROOKLYNN GROVER: ??neg COMMENT Procedure Note Provider, [facility] Historical Conversion - 09/13/2018 #[id number] - MA FFDM SCREEN W CAD LUCIUS BILATERAL DIGITAL SCREENING MAMMOGRAM WITH CAD: 10/02/2017 CLINICAL HISTORY:Routine annual screening mammogram. COMPARISON: Comparison is made to exams dated: 09/26/2016 mammogram, 08/24/2015mammogram, 07/29/2014 mammogram, and 07/15/2013 mammogram - [facility]. FINDINGS: There are scattered fibroglandular elements in both breasts. There is a benign focal asymmetry and a calcification in the left breast.There also are benign calcifications in the right breast. No significant masses, calcifications, or other findings are seen ineither breast. Current study was also evaluated with a Computer Aided Detection (CAD)system. There has been no significant interval change. IMPRESSION: BENIGN There is no mammographic evidence of malignancy. A 1 year screeningmammogram is recommended. MAMMOGRAPHY BI-RADS: 2 BENIGN Brian Lyn M.D. ag/penrad:10/02/2017 12:30:50 Installment Loan Collector: RT Libby(R)(M), [facility] letter sent: Normal Single Exam [id number] FINAL Dictated By: BRIAN RICHARD MD Electronically Reviewed and Approved By: FITZ STILL, BRIAN MORATAYA COMMENT Result Annotated 10/02/2017 14:29 by BROOKLYNN GROVER: negCOMMENT Brooklynn Grover MD IMG BI PROCEDURES from Last 3 Months or Most Recently Relevant to Health Maintenance Care Teams Senior Supplier Quality Engineer Relationship Specialty Start Date End Date Brooklynn Grover MD PCP - General 09/28/18
--- OUTSIDE RECORDS SUMMARY | 2024-12-09 12:42 | XMS_ITS | Referral Summary ---
Author Organization [facility] Medical Office Building [address] Address [address] [place] [address] Care Team Providers Care Turner Machine Name Role Phone Penny Goldman NP Primary Care Provider + Encounters Date Type Department Care Team Description 11/19/2024 11:30 AM MANAGER BUILDING Office Visit [facility] [address] [place] [address] Medical Office Building [address], [address] [place] [phone] Teressa Doshi NP Low anterior resection syndrome (Primary Dx); Irritable bowel syndrome with diarrhea; Rectal pain; Chronic diarrhea; History of rectal cancer 11/10/2024 Telephone [facility] [address] [place] [address] Medical Office Building [address], [address] [place] [phone] Stormy Anne, FLEXOGRAPHIC PRESS SET UP OPERATOR 11/06/2024 Telephone [facility] [address] [place] [address] Medical Office Building [address], [address] [place] [phone] Stormy Anne, FLEXOGRAPHIC PRESS SET UP OPERATOR 10/08/2024 Orders Only [facility] [address] [place] [address] Office Building 4, [address] [place] [phone] Teressa Doshi NP Low anterior resection syndrome (Primary Dx); Chronic diarrhea; Acute pain due to trauma 10/07/2024 Orders Only [facility] [address] [place] [address] Medical Office Building 4, [address] [place] [phone] Teressa Doshi, KHUSHI from Last 3 Months Allergies No known active allergies Medications gabapentin (NEURONTIN) 600 mg tabletIndications: Neuropathic Pain Take 1 tablet (600 mg total) by mouth nightly 09/11/20 18 Active multivitamin capsuleIndications :Vitamin Deficiency Take 1 capsule by mouth every morning Active escitalopram (LEXAPRO) 10 mg tablet Take 1 tablet (10 mg total) by mouth daily 03/14/20 21 Active Additional Information Patient taking differently:10 mg oralNightly, Indications: Anxiety with Depression, Informant: Self, Reported on 11/19/2024 colesevelam (WELCHOL) 625 mg tabletIndications: Chronic diarrhea TAKE 3 TABLETS TWICE A DAY WITH MEALS 540 tablet 3 10/13/20 22 Active Additional Information Patient taking differently: 3 tablet oral Daily after lunch, Informant: Self, Reported on 11/19/2024 cholecalciferol (VITAMIN D-3) 2000 unit tabletIndications: supplement Take 1 tablet (2,000 Units total) by mouth every morning Active aspirin 81 mg enteric coated tablet Take 1 tablet (81 mg total) by mouth 2 (two) times a day for 14 days For blood clot prevention. Take with food. 28 tablet 04/03/20 23 Active HYDROcodone-acetam inophen (NORCO) 10-325 mg per tablet TAKE 1 TO 2 TABLETS BY MOUTH DAILY NEEDED 07/02/20 23 Active psyllium, aspartame, SF (psyllium) 3.4 gram packet Take 1 packet by mouth daily Active naloxone (NARCAN) 4 mg/actuation spray,non-aerosol Administer 1 spray into affected nostril(s) as needed for opioid reversal or respiratory depression Call 911. Administer a single spray in one nostril. Repeat every 3 minutes as needed if no or minimal response. 1 each 1 03/18/20 24 Active belladonna alkaloids-opium (B&O SUPPRETTES) 16.2-30 mg suppositoryIndicat ions:Ureteral Spasm with Pain Insert 1 suppository (30 mg total) into the rectum every 8 (eight) hours as needed for diarrhea (diarrhea, anorectal pain) for up to 60 doses 90 suppository 05/06/20 24 Active traZODone (DESYREL) 150 mg tablet Take 1 tablet (150 mg total) by mouth daily as needed 06/02/20 24 Active ondansetron ODT (ZOFRAN-ODT) 4 mg disintegrating tablet Take 1 tablet (4 mg total) by mouth every 12 (twelve) hours as needed (LARs) 60 tablet 2 07/04/20 24 Active lidocaine-prilocai ne (EMLA) creamIndications:A dministration of Local Anesthesia Apply topically as needed for pain or irritation (Apply topically as needed for pain or irritation for up to 7 days) 30 g 1 10/07/20 24 Active loperamide (IMODIUM) 2 mg capsuleIndications :diarrhea Take 1 capsule (2 mg total) by mouth 4 (four) times a day as needed for diarrhea 120 capsule 3 10/08/20 24 Active Active Problems Problem Noted Date Diagnosed Date Tibia fracture 05/10/2023 Overview (05/10/2023): Ms. Ross has a history of a left ankle fracture sustained after syncope 6+ years ago and healed well after casting. In 03/2021 she again had syncope and sustained a right distal tib/fib fracture requiring surgical repair and a franklin and it's healed well. In her diet she gets 1 servings of calcium-rich food per day and vitamin D 2000 international units per day and a MVI. Her 25-OH vitamin D was normal at 68 ng/ml. She had natural menopause until age 48 and she took HRT for 2-3 years. She does water aerobics 5 days per week. She still gets light-headed and dizziness when she stands up too quickly, yet she's had no recurrence of her syncope. She's had a history of rectal cancer and she required rectal surgical resection and she's had XRT and chemotherapy for this. This has resulted in chronic diarrhea that she treats with wellchol and imodium and psylium husk to help. She's had no falls nor broken bones in 2 years. She quit tobacco 30 years ago and she quit ETOH over the past 1.5 years. Previously she had alcoholism for 10 years. Assessment & Plan (05/10/2023 1:10 PM CDT): Ms. Ross has a history of a left ankle fracture sustained after syncope 6+ years ago and healed well after casting and a right tib/fib fracture again 2 years ago after another episode of syncope. She's healed well after both fractures and her bone density is normal. She's on calcium and vitamin D and exercise and she exercises regularly. Her bone microarchitecture is also normal. I don't think that she needs additional medication at this time. I've asked her to evaluate herself for syncope with her primary care doctor to avoid similar situations. 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 History of colon polyps 06/26/2022 Overview (06/26/2022): Added automatically from request for surgery [id number] History of rectal cancer 06/26/2022 Overview (06/26/2022): Added automatically from request for surgery [id number] Closed fracture of part of f ibula with tibia, right, initial encounter 03/11/2021 Overview (03/11/2021): Added automatically from request for surgery [id number] Neuropathy 03/11/2021 Chronic pain 03/11/2021 Acute pain due to trauma 03/11/2021 Syncope and collapse 03/11/2021 Irritable bowel syndrome (IBS) 03/11/2021 History of colon cancer 04/28/2019 Overview (04/28/2019): Added automatically from request for surgery [id number] Neutropenia, drug-induced (CMS/HCC) 09/21/2016 Vaginal atrophy 09/21/2016 Pulmonary nodules 07/12/2016 Palmar plantar erythrodysaesthesia 05/02/2016 Chronic diarrhea 04/12/2016 History of ETOH abuse 04/12/2016 Rectal cancer (CMS/HCC) 02/15/2016 Immunizations Name Administration Dates Next Due Influenza, Quadrivalent, Spl it, Preservative Free, Intramuscular 08/22/2021,07/20/2020,08/12/2019,07/24,07/23/2018,08/28/2017,09/07/2016 ,11/18/2015 Influenza, Trivalent, High D ose, Split, Preservative Free, Intramuscular 08/05/2017 Influenza, Trivalent, IM (MDV) 08/31/2013 Influenza, Unspecified 07/24/2018 Tdap 11/05/2018 Social History Tobacco Use Types Packs/Day Years Used Date Smoking Tobacco: Former Cigarettes 0.1 18 1 5 - 1992 Smokeless Tobacco: Never Tobacco Cessation:Counseling Given: Not Answered Comments:Quit age 33; Gum daily Alcohol Use Standard Drinks/Week Comments Yes 14 (1 standard drink = 0.6 oz pu re alcohol) AUDIT-C Answer Date Recorded Q1: How often do you have a drink containing alc ohol? Never 11/19/2024 Average Number of Drinks Not on file 025 Frequency of Binge Drinking Not on file 11/05 Personal Safety Answer Date Recorded Have you ever been in or are you currently in a harmful physical or emotional relationship or is someone making you feel afraid or unsafe? Denies 07/18/2023 Comments No Sex and Gender Information Value Date Recorded Sex Assigned at Not on file Legal Sex Female 12:17 AM MANAGER BUILDING Gender Identity Not on file Sexual Orientation Not on file Last Filed Vital Signs Vital Sign Reading Time Taken Comments Blood Pressure 144/88 11/19/2024 11:33 AM MANAGER BUILDING Pulse 87 11/19/2024 11:33 AM MANAGER BUILDING Temperature 36.2 ??C (97.2 ??F) 07/18/2023 10:15 AM C DT Respiratory Rate 17 07/18/2023 10:40 AM CDT Oxygen Saturation 100% 07/18/2023 10:40 AM CDT Inhaled Oxygen Concentration - - Weight 58.8 kg (129 lb 9.6 oz) 11/19/2024 11:33 AM MANAGER BUILDING Height 171.5 cm (5' 7.5 ) 11/19/2024 11:33 AM CS T Body Mass Index 20 11/19/2024 11:33 AM MANAGER BUILDING Plan of Treatment Not on file Medical Devices Implanted Type Area Pizza Maker Device Identifier Shelf Expiration Date Model / Serial / Lot [employer]/Rich[employer]/Ort ho [id number] Tustin-Nail 10mm 33cm Tibia Nail Intramedullary Titanium - [id number] Implanted:Qty: 1 on 03/11/2021 by Earnestine Carmona MD at [facility] Right: Tibia [employer]/O rtho [id number] 07/30/2029 [id number] / / [id number] [employer]/Rich[employer]/Ort ho [id number] Evos 3.5mm 32mm Self Tap Cortex Screw Bone Sterile - [id number] Implanted:Qty: 2 on 03/11/2021 by Earnestine Carmona MD at [facility] Right: Tibia [employer]/O rtho [id number] / / [employer]/Rich[employer]/Ort ho [id number] 5mm 25mm Low Profile Internal Hex Femur Screw Bone Trigen - [id number] Implanted:Qty: 1 on 03/11/2021 by Earnestine Carmona MD at [facility] Right: Tibia [employer]/O rtho [id number] / / [employer]/Rich[employer]/Ort ho [id number] 5mm 42.5mm Low Profile Internal Hex Femur Screw Bone Trigen - [id number] Implanted:Qty: 1 on 03/11/2021 by Earnestine Carmona MD at [facility] Right: Tibia [employer]/O rtho [id number] / / [employer]Rich[employer]/Ort ho [id number] 5mm 30mm Low Profile Internal Hex Femur Screw Bone Trigen - [id number] Implanted:Qty: 1 on 03/11/2021 by Earnestine Carmona MD at [facility] Right: Tibia [employer]/O [employer]tho [id number] / / [employer]Rich[employer]/Ort ho [id number] 5mm 35mm Low Profile Internal Hex Femur Screw Bone Trigen - [id number] Implanted:Qty: 2 on 03/11/2021 by Earnestine Carmona MD at [facility] Right: Tibia [employer]/O rtho [id number] / / [employer]Rich[employer]/Ort ho [id number] 5mm 45mm Low Profile Internal Hex Femur Screw Bone Trigen - [id number] Implanted:Qty: 1 on 03/11/2021 by Earnestine Carmona MD at [facility] Right: Tibia [employer]Rich[employer]/O rtho [id number] / / Procedures Procedure Name Priority Date/Time Associated Diagnosis Comments DEXA TBS AXIAL SKELETON BONE DENSITY 1 OR MORE SITES Schedule Routine, Read Routine (OP Routine) 06/10/2024 12:30 PM CDT Localized osteoporosis without current pathological fracture COLONOSCOPY 07/18/2023 9:47 AM CDT from Last 3 Months or Most Recently Relevant to Health Maintenance Results * Dexa TBS Axial Skeleton Bone Density 1 or more sites (06/10/2024 12:30 PM CDT) Anatomical Region Laterality Modality Wrist, Body N/A Radiographic Diandra ging Narrative 06/26/2024 3:02 PM CDT Patient Name: Nisreen Gan Date of : 1960 Date of scan: 06/10/2024 Bone mineral density was performed on a [employer] Discovery Densitometer. ?? Based on machine cross-calibration and precision studies the least significant changes of this densitometer is 0.024 g/cm2 at the spine, 0.020 g/cm2 at the total proximal femur, and 0.014g/cm2 at the forearm. HISTORY: This is a 64 y.o. postmenopausal female with a history of low bone mass and vitamin D deficiency. She reports that she quit smoking about 31 years ago. Her smoking use included cigarettes. She started smoking about 49 years ago. She has a 0.9 pack-year smoking history. She has never used smokeless tobacco. Currently on treatment with vitamin D and previously treated with hormone replacement therapy. INDICATIONS: Menopause status, vitamin D deficiency, and history of low bone mass. FINDINGS: BONE MINERAL DENSITY OF THE LUMBAR SPINE Bone Mineral Density (BMD) of the lumbar spine was measured from L1-L4 and the average density was calculated to be 1.247 gm/cm2. This corresponds to a T-score (standard deviations from the mean of young adults) of 1.8. When compared to the previous study of 05/10/2023 there has been a 0.044 gm/cm (3.7%) increase in bone density that is considered significant. BONE MINERAL DENSITY OF THE PROXIMAL FEMUR Bone Mineral Density (BMD) of the left hip total was found to be 0.952 gm/cm2. This corresponds to a T-score standard deviations from the mean of young adults of 0.1. Femoral neck is 0.764 gm/cm2 with a T-score (standard deviations from the mean of young adults) of -0.8. When compared to the previous study of 05/10/2023 there has been a 0.031 gm/cm (3.4%) increase in bone density that is considered significant. SUMMARY: Bone mineral density is near the young adult normal mean with no increased risk for fracture. There has been a significant increase in bone density since previous measurement. ADDITIONAL COMMENTS: Postmenopausal Women and Men Over 50: Diagnostic criteria: Osteoporosis: BMD at or below -2.5 T-score; Osteopenia (low bone mass): BMD between -1.0 and -2.5 T-score. If the patient has a history of a fragility fracture, a fracture that occurred with trauma equivalent to a fall from a standing position or less, then the diagnosis is osteoporosis regardless of bone density. The history and data sections of the bone mineral density scan were prepared by Ghada Stafford (R)(CBDT)who is accredited by the International Society of Clinical Densitometry. The overall patient assessment and scan interpretation were performed by Janet Robison M.D.who is certified by the International Society of Clinical Densitometry. [id number] us Janet Robison MD IMG DXA PROCEDURES Final Re sult * COLONOSCOPY (07/18/2023 9:47 AM CDT) Anatomical Region Laterality Modality Other Narrative Procedure Note Alirio Miranda MD - 07/18/2023 9:47 AM CDT ENDOSCOPY LAB Patient Name: Nisreen Gan Procedure Date: 07/18/2023 9:47 AM Date of : 1960 Admit Type: Outpatient Age: 63 Gender: Female Attending MD: Alirio Miranda M.D. Room: [facility] ENDOSCOPY ROOM 03 Note Status: Finalized Procedure: Colonoscopy Indications: High risk colon cancer surveillance: Personalhistory of colonic polyps, 1 year ago w/ 18 mm sessilepolyp in ascending colon; Personal history of rectalcancer s/p LAR, chemo, XRT Providers: Alirio Miranda M.D. Referring MD: Mattie Watters Medicines: Monitored Anesthesia Care Complications: No immediate complications. Estimated Blood Loss: Estimated blood loss was minimal. Procedure: Pre-Anesthesia Assessment: - Prior to the procedure, a History and Physicalwas performed, and patient medications, allergies and sensitivities were reviewed. The patient'stolerance of previous anesthesia was reviewed. - The risks and benefits of the procedure and the sedation options and risks were discussed with the patient. All questions were answered and informed consent was obtained. - Immediately prior to administration ofmedications, the patient was re-assessed for adequacy to receive sedatives. The benefits, risks and alternatives of theprocedure and sedation were discussed and informed consentwas obtained. All questions were answered. Please referto the signed informed consent document in the medical record. The scope was passed under direct vision.The [id number] was introduced through the anusand advanced to the terminal ileum. The colonoscopy was performed without difficulty. The patient tolerated the procedure well. The quality of the bowel preparation was evaluated using the BBPS (BostonBowel Preparation Scale) with scores of: Right Colon = 3 (entire mucosa seen well with no residual staining, small fragments of stool or opaque liquid),Transverse Colon = 3 (entire mucosa seen well with no residual staining, small fragments of stool or opaqueliquid) and Left Colon = 2 (minor amount of residualstaining, small fragments of stool and/or opaque liquid, but mucosa seen well). The total BBPS score equals 8.The quality of the bowel preparation was good. Findings: The terminal ileum appeared normal. A post polypectomy scar was found in the ascending colon. There was congested mucosa vs residual polypoid tissue. The raised mucosa was removed with a cold snare. Resection and retrieval were complete. There was evidence of a prior end-to-end colo-rectal anastomosis inthe rectum. This was patent and was characterized by healthy appearance though wtih an area of raised/congested mucosa in the rectal cuff. Biopsies were taken with a cold forceps for histology. Internal hemorrhoids were found. The hemorrhoids were small and GradeI (internal hemorrhoids that do not prolapse). Impression: - The examined portion of the ileum was normal. - Post-polypectomy scar in the ascending colon. - Patent end-to-end colo-rectal anastomosis, characterized by congestion. Biopsied. - Internal hemorrhoids. Recommendation: - Await pathology results. - Repeat colonoscopy for surveillance based on pathology results. - Contact Information: During normal business hours - Please call theNurse Coordinator: [phone] After hours, evening, nights, weekends and holidays- Please call the hospital head mva reactor operator at and ask for the GI fellow cardiac nurse practitioner. Attending Participation: I personally performed the entire procedure. Electronically signed by Alirio Miranda MD Alirio Miranda M.D. 07/18/2023 10:20:18 AM Number of Addenda: 0 Note Initiated On: 07/18/2023 9:47 AM Alirio Miranda MD ENDOSCOPY PROCEDURES Final Result from Last 3 Months or Most Recently Relevant to Health Maintenance Insurance CIG MEDICARE [facility] MEDICARE [employer] [facility] Advance Directives For more information, please contact: [phone] Documents on File Type Date Recorded Patient Tube Tester Expl anation ADVANCE DIRECTIVE 04/03/2023 6:23 AM Power of Sugar Grinder-Medical * Full Code (Latest Code Status on File) Date Activated Date Inactivated Comments 07/18/2023 8:31 AM 07/18/2023 3:05 PM * Full Code Date Activated Date Inactivated Comments 07/18/2022 8:55 AM 07/18/2022 3:13 PM * Full Code Date Activated Date Inactivated Comments 03/11/2021 9:56 PM 03/17/2021 8:58 PM * Full Code Date Activated Date Inactivated Comments 07/16/2019 7:21 AM 07/16/2019 2:13 PM Care Teams Turner Machine Relationship Specialty Start Date End Date Penny Goldman NP [facility] [facility] [address] [place] [address] [place] [phone] PCP - General Nurse Practitioner 02/29/24
--- OUTSIDE RECORDS SUMMARY | 2024-12-09 12:42 | XMS_ITS | Clinical Summary ---
[facility] Organization [facility] Address [address] [place] [address] Care Team Providers Care Swimming Teacher Name Role Phone Penny Goldman POLE FRAMER MACHINE Primary Care Provider + Allergies No known active allergies Medications gabapentin [...] (06/26/2022): Added automatically from request for surgery [id number] History of rectal cancer 06/26/2022 Overview (06/26/2022): Added automatically from request for surgery [id number] Closed fracture of part of f ibula with tibia, right, initial encounter 03/11/2021 Overview (03/11/2021): Added automatically from request for surgery [id number] Neuropathy 03/11/2021 Chronic pain 03/11/2021 Acute pain due to trauma 03/11/2021 Syncope and collapse 03/11/2021 Irritable bowel syndrome (IBS) 03/11/2021 History of colon cancer 04/28/2019 Overview (04/28/2019): Added automatically from request for surgery [id number] Neutropenia, drug-induced (CMS/HCC) 09/21/2016 Vaginal atrophy 09/21/2016 Pulmonary nodules 07/12/2016 Palmar plantar erythrodysaesthesia 05/02/2016 Chronic diarrhea 04/12/2016 History of ETOH abuse 04/12/2016 Rectal cancer (CMS/HCC) 02/15/2016 Encounters Date Type Department Care Team Description 11/19/2024 11:30 AM PLANTING MATERIAL UNLOADER Office Visit [facility] [address] [place] [address] Medical Office Building [address], [address] [place] [address] Teressa Doshi, KHUSHI Low anterior resection syndrome (Primary Dx); Irritable bowel syndrome with diarrhea; Rectal pain; Chronic diarrhea; History of rectal cancer 11/10/2024 Telephone [facility] [address] [place] [address] Medical Office Building [address], [address] [place] [phone] Stormy Anne, LABORER CHEESEMAKING 11/06/2024 Telephone [facility] [address] [place] [address] Medical Office Building [address], [address] [place] [phone] Stormy Anne, LABORER CHEESEMAKING 10/08/2024 Orders Only [facility] [address] [place] [address] Medical Office Building [address], [address] [place] [phone] Teressa Doshi, KHUSHI Low anterior resection syndrome (Primary Dx); Chronic diarrhea; Acute pain due to trauma 10/07/2024 Orders Only [facility] [address] [place] [address] Medical Office Building [address], [address] [place] [phone] Teressa Doshi, KHUSHI from Last 3 Months Immunizations Name Administration Dates Next Due Influenza, Quadrivalent, Spl it, Preservative Free, Intramuscular 08/22/2021,07/20/2020,08/12/2019,07/24,07/23/2018,08/28/2017,09/07/2016 ,11/18/2015 Influenza, Trivalent, High D ose, Split, Preservative Free, Intramuscular 08/05/2017 Influenza, Trivalent, IM (MDV) 08/31/2013 Influenza, Unspecified 07/24/2018 Tdap 11/05/2018 Surgical History Surgery Date Site/Laterality Comments LOW ANTERIOR BOWEL RESECTION 11/05/2015 - 11/04/2016 w/ileostomy COLONOSCOPY ESOPHAGOGASTRODUODENOSCOPY ILEOSTOMY CLOSURE 11/05/2015 - 11/04/2016 ORIF TIBIA FRACTURE 11/05/2020 - 11/04/2021 Right hardware removal 04/03/23 COLONOSCOPY 11/05/2021 - 11/04/2022 Medical History Medical History Date Comments Chronic diarrhea Rectal cancer (CMS/HCC) (HCC) 2015 s/ p chemoradiation Depression Asthma Motion sickness Family History Medical History Relation Name Comments Anesthesia problems Neg Hx Broken bones Neg Hx Hip fracture Neg Hx Kyphosis Neg Hx Osteoporosis Neg Hx Scoliosis Neg Hx Social History Tobacco Use Types Packs/Day Years Used Date Smoking Tobacco: Former Cigarettes 0.1 18 1 975 - 1992 Smokeless Tobacco: Never Tobacco Cessation:Counseling [...] on file Legal Sex Female 12:17 AM PLANTING MATERIAL UNLOADER Gender Identity Not on file Sexual Orientation Not on file Obstetrics History Last Filed Vital Signs Vital Sign Reading Time Taken Comments Blood Pressure 144/88 11/19/2024 11:33 AM PLANTING MATERIAL UNLOADER Pulse 87 11/19/2024 11:33 AM PLANTING MATERIAL UNLOADER Temperature 36.2 ??C (97.2 ??F) 07/18/2023 10:15 AM C DT Respiratory Rate 17 07/18/2023 10:40 AM CDT Oxygen Saturation 100% 07/18/2023 10:40 AM CDT Inhaled Oxygen Concentration - - Weight 58.8 kg (129 lb 9.6 oz) 11/19/2024 11:33 AM PLANTING MATERIAL UNLOADER Height 171.5 cm (5' 7.5 ) 11/19/2024 11:33 AM CS T Body Mass Index 20 11/19/2024 11:33 AM PLANTING MATERIAL UNLOADER Plan of Treatment Health Maintenance Due Date Last Done Comments Breast Cancer Screening-Mammogram 1960 Depression Screening 1960 Hepatitis C Screening 1960 Pneumococcal vaccine 65+ (1 of 2 - PCV) 1964 Hepatitis B Screening 1976 Zoster Vaccine (1 of 2) 1977 Well Visit 65+ 2023 Influenza Vaccine (#1) 2024 , 07/20/2020, 08/12/2019, Additional history exists Fall Risk Assessment 07/18/2024 07/18/2023 Osteoporosis Screening-Bone Density Scan 06/10/2026 06/10/2024, 05/10/2023, 05/10/2023, Additional history exists DTaP/Tdap/Td Vaccine (2 - Td or Tdap) 11/05/2028 11/05/2018 Colon Cancer Screening-Colonoscopy 07/18/2033 07/18/2023, 07/18/2022, 07/16/2019 Colon Cancer Screening-CT Colonography Discontinued 07/18/2023, 07/18/2022, 07/16/2019 Colon Cancer Screening-DNA Stool Discontinued 07/18/2023, 07/18/2022, 07/16/2019 Colon Cancer Screening-FIT Discontinued 07/18, 07/18/2022, 07/16/2019 Colon Cancer Screening-Sigmoidoscopy Discontinued 07/18/2023, 07/18/2022, 07/16/2019 Medical Devices Implanted Type Area Baseball Glove Stuffer Device Identifier Shelf Expiration Date Model / Serial / Lot [employer]/Rich[employer]/Ort ho [id number] Central-Nail 10mm 33cm Tibia Nail Intramedullary Titanium - [id number] Implanted:Qty: 1 on 03/11/2021 by Earnestine Carmona MD at [facility] Right: Tibia [employer]/O rtho [id number] 07/30/2029 [id number] / / [id number] [employer]/Rich[employer]/Ort ho [id number] Evos 3.5mm 32mm Self Tap Cortex Screw Bone Sterile - [id number] Implanted:Qty: 2 on 03/11/2021 by Earnestine Carmona MD at [facility] Right: Tibia [employer]/O rtho [id number] / / [employer]/Rich[employer]/Ort ho [id number] 5mm 25mm Low Profile Internal Hex Femur Screw Bone Trigen - [id number] Implanted:Qty: 1 on 03/11/2021 by Earnestine Carmona MD at [facility] Right: Tibia [employer]/O rtho [id number] / / [employer]/Rich[employer]/Ort ho [id number] 5mm 42.5mm Low Profile Internal Hex Femur Screw Bone Trigen - [id number] Implanted:Qty: 1 on 03/11/2021 by Earnestine Carmona MD at [facility] Right: Tibia [employer]/O rtho [id number] / / [employer]/Rich[employer]/Ort ho [id number] 5mm 30mm Low Profile Internal Hex Femur Screw Bone Trigen - [id number] Implanted:Qty: 1 on 03/11/2021 by Earnestine Carmona MD at [facility] Right: Tibia [employer]/O rtho [id number] / / [employer]Rich[employer]/Ort ho [id number] 5mm 35mm Low Profile Internal Hex Femur Screw Bone Trigen - [id number] Implanted:Qty: 2 on 03/11/2021 by Earnestine Carmona MD at [facility] Right: Tibia [employer]/O rtho [id number] / / [employer]Rich[employer]/Ort ho [id number] 5mm 45mm Low Profile Internal Hex Femur Screw Bone Trigen - [id number] Implanted:Qty: 1 on 03/11/2021 by Earnestine Carmona MD at [facility] Right: Tibia [employer]/O rtho [id number] / / Procedures Procedure Name Priority Date/Time [...] Bone mineral density was performed on a [employer] Discovery Densitometer. ?? Based on machine cross-calibration [...] by the International Society of Clinical Densitometry. [id number] us Janet Robison MD IMG DXA PROCEDURES Final Re sult * COLONOSCOPY (07/18/2023 9:47 AM CDT) Anatomical Region Laterality Modality Other Narrative Procedure Note Alirio Miranda MD - 07/18/2023 9:47 AM CDT ENDOSCOPY LAB Patient Name: Nisreen Gan Procedure Date: 07/18/2023 9:47 AM Date of : 1960 Admit Type: Outpatient Age: 63 Gender: Female Attending MD: Alirio Miranda M.D. Room: [facility] ENDOSCOPY ROOM 03 Note Status: Finalized Procedure: [...] The scope was passed under direct vision.The [id number] was introduced through the anusand advanced to [...] During normal business hours - [facility] Coord[facility]: [phone] After hours, evening, nights, weekends and holidays- Please call the hospital track broom operator at and ask for the GI fellow home companion. Attending Participation: I personally performed the entire procedure. Electronically signed by Alirio Miranda MD Alirio Miranda M.D. 07/18/2023 10:20:18 AM Number of Addenda: 0 Note Initiated On: 07/18/2023 9:47 AM Alirio Miranda MD ENDOSCOPY PROCEDURES Final Result from Last 3 Months or Most Recently Relevant to Health Maintenance Insurance [facility] H[facility]/PPO Address: [facility] [id number] [place] [id number] [place] [address] [facility] [place] [address] [facility] Advance Directives For more information, please contact: [phone] Documents on File Type Date Recorded Patient Internet Marketing Director Expl anation ADVANCE DIRECTIVE 04/03/2023 6:23 AM Power of Vegetable Ii Farmworker-Medical * Full Code (Latest Code Status on File) Date Activated Date Inactivated Comments 07/18/2023 8:31 AM 07/18/2023 3:05 PM * Full Code Date Activated Date Inactivated Comments 07/18/2022 8:55 AM 07/18/2022 3:13 PM * Full Code Date Activated Date Inactivated Comments 03/11/2021 9:56 PM 03/17/2021 8:58 PM * Full Code Date Activated Date Inactivated Comments 07/16/2019 7:21 AM 07/16/2019 2:13 PM Care Teams Swimming Teacher Relationship Specialty Start Date End Date Penny Goldman NP [address] [place] [address] [address] PCP - General Nurse Practitioner 02/29/24
--- OUTSIDE RECORDS SUMMARY | 2024-12-09 12:42 | XMS_ITS | Clinical Summary ---
Author Organization [facility] Address [address] [place] [address] Care Team Providers Care Operations General Agent Name Role Phone Brooklynn Reis MD Primary Care Provider [phone] Immunizations Name Administration Dates Next Due Influenza, [...] 06/18/2018 8:00 AM CDT Plan of Treatment Health Maintenance Due Date Last Done Comments Depression Screening 1970 CT Colonography 2003 Cologuard 2003 Colonoscopy 2003 Colorectal Cancer Screen 2003 Fecal Occult Blood 2003 Sigmoidoscopy 2003 Pneumococcal Vaccine 50+ (1 of 1 - PCV) 2008 Shingles Vaccine (1 of 2) 2008 Breast Cancer Screening 10/02/2019 10/02/20 17, 09/26/2016, 08/24/2015, Additional history exists DTaP/Tdap/Td Vaccine (2 - Td or Tdap) 10/24/2021 10/24/2011 Osteoporosis Screening 2023 COVID-19 Vaccine (1 - 2023- season) 2024 Influenza Vaccine (#1) 2024 7, 11/18/2015, 08/31/2013 Respiratory Syncytial Virus (RSV) Vaccine 60+ (1 - 1-dose 75+ series) 2033 HPV Vaccine Aged Out No longer eligi ble based on patient's age to complete this topic Hepatitis A Vaccine Aged Out No longe r eligible based on patient's age to complete this topic Hepatitis B Vaccine (For Physician/APC Discussion) Aged Out No longer elig ible based on patient's age to complete this topic Meningococcal Serogroup B Vaccine Aged Out No longer eligible based on patient's age to complete this topic Meningococcal Vaccine Aged Out No ricarda domenico eligible based on patient's age to complete this topic Procedures Procedure Name Priority Date/Time Associated Diagnosis Comments MAMMO SCREENING BILATERAL Routine 10/02/2017 11:05 AM VAULT KEEPER from Last 3 Months or Most Recently Relevant to Health Maintenance Results * MA MAMMO SCREENING BILATERAL (10/02/2017 11:05 AM VAULT KEEPER) Anatomical Region Laterality Modality Breast Bilateral Mammography 10/02/2017 11:0 5 AM VAULT KEEPER 10/02/2017 11:05 AM VAULT KEEPER Narrative 10/02/2017 2:29 PM VAULT KEEPER #[id number] - MA FFDM SCREEN W CAD LUCIUS BILATERAL DIGITAL SCREENING MAMMOGRAM WITH CAD: 10/02/2017 CLINICAL HISTORY:Routine annual screening mammogram. COMPARISON: Comparison is made to exams dated: ??09/26/2016 mammogram, 08/24/2015 mammogram, 07/29/2014 mammogram, and 07/15/2013 [facility]ogram - [facility]. FINDINGS: There are scattered fibroglandular elements in [...] 2 BENIGN Brian Lyn M.D. ag/penrad:10/02/2017 12:30:50 Transmission Assembler: Enriqueta ??RT Madhavi(Hardy)(M), [facility] letter sent: Normal Single Exam [id number] ??FINAL ?? Dictated By: ? FITZ STILL, BRIAN MORATAYA Electronically Reviewed and Approved By: ?FITZ STILL, BRIAN MORATAYA COMMENT Result Annotated 10/02/2017 14:29 by BROOKLYNN REIS: ??neg COMMENT Procedure Note Provider, [facility] Historical Conversion - 09/13/2018 #[id number] - MA FFDM SCREEN W CAD LUCIUS BILATERAL DIGITAL SCREENING MAMMOGRAM WITH CAD: 10/02/2017 CLINICAL HISTORY:Routine annual screening mammogram. COMPARISON: Comparison is made to exams dated: 09/26/2016 mammogram, 08/24/2015mammogram, 07/29/2014 mammogram, and 07/15/2013 mammogram - [facility]. FINDINGS: There are scattered fibroglandular elements in [...] 2 BENIGN Brian Lyn M.D. ag/penrad:10/02/2017 12:30:50 Transmission Assembler: Enriqueta Hendrickson RT(R)(M), [facility] letter sent: Normal Single Exam [id number] FINAL Dictated By: FITZ STILL, BRIAN MORATAYA Electronically Reviewed and Approved By: FITZ STILL, BRIAN MORATAYA COMMENT Result Annotated 10/02/2017 14:29 by BROOKLYNN REIS: negCOMMENT Brooklynn Reis MD IMG BI PROCEDURES from Last 3 Months or Most Recently Relevant to Health Maintenance Care Teams Operations General Agent Relationship Specialty Start Date End Date Brooklynn Reis MD PCP - General 09/28/18
--- OUTSIDE RECORDS SUMMARY | 2024-12-09 12:42 | XMS_ITS | Encounter Summary ---
Author Organization [facility] Address [address] [place] [address] Phone Care Team Providers Care Outpatient Admitting Clerk Name Role Phone Jeff Beckford MD Primary Care Provider [phone] Janet Wong CERAMICS TEST ENGINEER Primary Care Provider [phone] Penny Goldman CERAMICS TEST ENGINEER Primary Care Provider + Encounter Details Date Type Department Care Team (Late st Contact Info) Description 05/15/2022 Orders Only [facility] Scanning, Provider Social History Tobacco Use Types Packs/Day Years Used Date Smoking Tobacco: Former Cigarettes 0.1 18 1 5 - 1992 Smokeless Tobacco: Never Comments:Quit age 33 Alcohol Use Standard Drinks/Week Comments Yes 14 (1 standard drink = 0.6 oz pu re alcohol) AUDIT-C Answer Date Recorded Q1: How often do you have a drink containing alc ohol? Never 05/09/2022 Average Number of Drinks Not on file 022 Frequency of Binge Drinking Not on file 03/2022 Comments No Sex and Gender Information Value Date Recorded Sex Assigned at Not on file Legal Sex Female 12:17 AM HOD CARRIER Gender Identity Not on file Sexual Orientation Not on file documented as of this encounter Plan of Treatment Not on file documented as of this encounter Procedures Procedure Name Priority Date/Time Associated Diagnosis Comments SCAN - LABS 05/15/2022 documented in this encounter Results * SCAN - LABS (05/15/2022) us Provider Scanning Final Result documented in this encounter Visit Diagnoses Not on filedocumented in this encounter Care Teams Outpatient Admitting Clerk Relationship Specialty Start Date End Date Jeff Beckford MD [address] [place] [address] PCP - General Family Practice 07/17/18 02/01/23 Janet Wong NP [address] [place] [address] PCP - General Family Medicine 02/02/23 02/28/[address] [facility] [address] [place] [address] [place] [address] PCP - General Nurse Practitioner 02/29/24 documented as of this encounter
--- OUTSIDE RECORDS SUMMARY | 2024-12-09 12:42 | XMS_ITS ---
Author Organization [facility] Medical Office Building [address] Address [address] [place] [address] Care Team Providers Care Plumbing Drafter Name Role Phone Penny Goldman AVIATION WARFARE SYSTEMS OPERATOR Primary Care Provider + Active Problems Problem Noted Date Diagnosed Date [...] (06/26/2022): Added automatically from request for surgery [id number] History of rectal cancer 06/26/2022 Overview (06/26/2022): Added automatically from request for surgery [id number] Closed fracture of part of f ibula with tibia, right, initial encounter 03/11/2021 Overview (03/11/2021): Added automatically from request for surgery [id number] Neuropathy 03/11/2021 Chronic pain 03/11/2021 Acute pain due to trauma 03/11/2021 Syncope and collapse 03/11/2021 Irritable bowel syndrome (IBS) 03/11/2021 History of colon cancer 04/28/2019 Overview (04/28/2019): Added automatically from request for surgery [id number] Neutropenia, drug-induced (CMS/HCC) 09/21/2016 Vaginal atrophy 09/21/2016 Pulmonary nodules 07/12/2016 Palmar plantar erythrodysaesthesia 05/02/2016 Chronic diarrhea 04/12/2016 History of ETOH abuse 04/12/2016 Rectal cancer (CMS/HCC) 02/15/2016 Current Oncology Plans No current plan information found. Past Plans No past plan information found. Radiation Treatments * No radiation treatments are documented for this patient in [facility]. Treatments may have been administered in another system. Lifetime Dose Tracking * Chemical Lifetime Dose Automatic Entry Manual Entr y Fluoro Time 4.995 minutes 4.995 minutes 0 minutes Air kerma at the reference point (flory Vang) 12.08 mGy 1 2.08 mGy 0 mGy DLP 825 mGycm 825 mGycm 0 mGycm
[2024-12-09 12:52] LABS: Basophils Absolute Auto 0.1 K/mm3 (0.0-0.1); Basophils Percent Auto 0.9 % (0.2-1.2); Eosinophils Absolute Auto 0.5 K/mm3 (0-0.3); Eosinophils Percent Auto 9.2 % (0-4.4); Hematocrit 45.1 % (37.0-47.0); Hemoglobin 15.2 g/dL (12.0-15.0); Immature Granulocyte Absolute 0.01 K/mm3 (0.00-0.031); Immature Granulocyte Percent A 0.2 % (0-0.5); Lymphocytes Absolute Auto 1.38 K/mm3 (0.9-3.2); Lymphocytes Percent Auto 24.3 % (18.3-44.2); Mean Corpuscular HGB Conc 33.7 g/dl (32-36); Mean Corpuscular Hemoglobin 32.6 pg (26-34); Mean Corpuscular Volume 96.8 fl (80-100); Mean Platelet Volume 9.7 fl (7.4-10.4); Monocytes Absolute Auto 0.3 K/mm3 (0.1-0.6); Monocytes Percent Auto 4.9 % (2.6-8.5); Neutrophils Absolute Auto 3.4 K/mm3 (1.3-6.7); Neutrophils Percent Auto 60.5 % (45.5-73.1); Platelet Count Result 188 k/mm3 (150-375); Red Blood Count 4.66 M/mm3 (4.2-5.4); Red Cell Distribution Width 12.4 % (11.5-14.5); White Blood Count 5.7 K/mm3 (4.5-10.0)
[2024-12-09 15:43] LABS: Alanine Aminotransferase 16 U/L (6-35); Albumin Level 4.4 g/dL (3.5-5.1); Alkaline Phosphatase 46 U/L (38-126); Anion Gap 9 mmol/L (4-12); Aspartate Amino Transferase 24 U/L (14-36); Bilirubin,Total 0.5 mg/dL (0.2-1.3); Blood Urea Nitrogen 15 mg/dL (7-17); Calcium 10.4 mg/dL (8.4-10.2); Carbon Dioxide 29 mmol/L (22-30); Chloride 101 mmol/L (98-107); Estimated Glomerular Filt Rate > 60; Glucose 109 mg/dL (65-110); Potassium 4.4 mmol/L (3.4-5.0); Sodium 139 mmol/L (137-145)
== END 2024-12-09 12:38 | disposition home or self-care (01) ==
LOC: ANHLAB 12:39
PROVIDERS: PCP Nurse Practitioner Family; Visit Provider Internal Medicine Hematology & Oncology
DX: C20 Malignant neoplasm of rectum (principal)
CPT/HCPCS: 36415; 80053; 85025

== ENCOUNTER 2025-01-04 02:11 | Emergency (ER) | payer MEDICARE, OTHER, SELFPAY ==
[2025-01-04 02:12] VITALS: BP 124/68; PULSE 94; RESP 16; TEMP 36.4; O2SAT 100
[2025-01-04] MEDS: HYDROcodone/acetaminophen (*CRX) 5-325 MG TABLET 1 TAB PO (03:19)
--- NOTE | 2025-01-04 03:26 | ED.GENADULT ---
HPI - General Adult General Chief complaint: Extremity Injury, Upper Stated complaint: right shoulder dislocation Time Seen by Provider: 01/04/25 02:16 History of Present Illness HPI narrative: Patient is a 64-year-old female who presents emergency department this evening status post fall. Patient states that she has recurrent syncopal episodes which is a chronic condition for her and had one today which caused her to fall and land on her right shoulder. Patient states that she has fully been worked up for the syncopal episodes and confirms this is not a new condition. Patient denies hitting her head and denies any loss of consciousness. States that she has broken her right collarbone in the past but never dislocated or broken her upper extremity. who is present with the patient at bedside states that when he was trying to help her get up he felt a bone a shift and since then patient states that her pain has improved and is tolerable as long she does not move her right upper extremity. Denies any blood thinner use. Related Data Home Medications ?Medication ?Instructions ?Recorded ?Confirmed ?Last Taken ?Type hydrocodone 10 mg-acetaminophen 1 tablet PO Q8H PRN 09/15/19 07/02/24 Unknown History 325 mg tablet cholecalciferol (vitamin D3) 125 125 mcg PO DAILY 01/02/20 07/02/24 Unknown History mcg (5,000 unit) tablet multivitamin 1 tablet PO DAILY 01/02/20 07/02/24 Unknown History aspirin 81 mg tablet,delayed 81 mg PO DAILY 01/05/20 07/02/24 Unknown History release (Adult Aspirin Regimen) loperamide 2 mg capsule (Imodium 2 mg PO DAILY 01/05/20 07/02/24 Unknown History A-D) colesevelam 625 mg tablet (WelChol) 1,250 mg PO BID 06/18/20 07/02/24 Unknown History Allergies Allergy/AdvReac Type Severity Reaction Status Date / Time No Known Allergies Allergy Verified 07/02/24 13:49 Review of Systems Review of Systems: All systems are reviewed and are negative unless stated otherwise in the HPI. [facility] Past Medical History Medical History Traumatic injury of rib Collar bone pain Screening breast examination Well woman exam (no gynecological exam) Chronic diarrhea Osteopenia Dyspareunia in female Hyperlipidemia Urinary incontinence since radiation in 2016 Tibia and fibula open fracture, right History of carcinoma in situ of rectum (~2015) Asthma Generalized anxiety disorder Peripheral neuropathy due to chemotherapy (~2015) follows w/ [facility] Surgical History Surgical History History of ankle surgery Right 03/2021 Seun and Screws removed 04/2023 History of open reduction and internal fixation (ORIF) procedure (~03/2021) Rt Tib-Fib H/O ileostomy (~2015) History of rectal surgery 2015 Family History Family History Mother Family history of alcoholism Family history of malignant neoplasm of breast in first degree relative Social History Social History Smoking packs per day: 1 Smoking cigarettes per day: 20.0 Years smoked: 20 Smoking pack-years: 20.00 Smoking status: Former smoker Second hand tobacco smoke exposure: No Alcohol intake: current Drinks per week: 8 Substance use: never Do You Feel Safe in your Home?: Yes Lack of Transportation: No Lack of Food: Never True Current Housing: I Have Housing Concerned About Future Housing: No Difficulty Paying Gas/Electric Bills: No Difficulty Paying for Meds: No Currently Unemployed: No Education: Bachelor's Degree Difficulty w/ Childcare or Family Care: No Living arrangements: with family Occupation/Education: retired Gender identity (if verbalized by the patient): Female Agree to blood products: Yes Exam Narrative: General: Alert, awake, afebrile, in no acute distress. HEENT: PERRL, no rhinorrhea, no post nasal drip, oropharynx clear. Neck: Trachea midline, no JVD, no lymphadenopathy. Cardiovascular: Regular rate and rhythm, no murmurs, rubs or gallops, no peripheral edema. Respiratory: Clear to auscultation bilaterally, no tachypnea, no wheezing, no rhonchi, no rubs, no respiratory distress. Abdomen: Soft, nontender, nondistended, no rebound, no guarding, no peritoneal signs. Musculoskeletal: Right upper extremity held in 80 duction at the right shoulder joint and 90 degree flexion at the right elbow joint, patient is neurovascularly intact along the axillary, median, radial and ulnar nerve distributions with intact and equal radial and ulnar pulses, range of motion is limited at the right shoulder joint secondary to pain, intact full range of motion at the right elbow and wrist joints. Skin: No rashes or petechia, no signs of infection. Psychiatric: Alert and oriented, normal behavior and judgment for situation. Neurological: Alert and oriented to person, place, and time. Follows all commands. No focal deficits, speech is clear and fluent. Course Vital Signs Vital signs: Vital Signs Temperature 97.6 F 01/04/25 02:12 Pulse Rate 94 01/04/25 02:12 Respiratory Rate 16 01/04/25 02:12 Blood Pressure 124/68 01/04/25 02:12 Pulse Oximetry 100 01/04/25 02:12 Oxygen Delivery Room Air 01/04/25 02:12 Temperature 97.6 F 01/04/25 02:12 Pulse Rate 94 01/04/25 02:12 Respiratory Rate 16 01/04/25 02:12 Blood Pressure 124/68 01/04/25 02:12 Pulse Oximetry 100 01/04/25 02:12 Oxygen Delivery Room Air 01/04/25 02:12 Medical Decision Making MDM Narrative Medical decision making narrative: The patient was evaluated by myself in the emergency department. History is obtained from patient who is an independent historian and physical exam was performed. External medical records were reviewed at this time. Patient was administered an oral [place] 5-325 mg. Patient states that as long she does not move her right upper extremity her pain is tolerable. Imaging studies obtained included right shoulder x-rays which was independently interpreted by me revealing a nondisplaced right humeral neck fracture. At this time, patient was placed in shoulder immobilizer/swathe. Differential diagnosis considerations include fractures, dislocation, musculoskeletal strain, rotator cuff injury. Comorbidities impacting this visit include none. I have evaluated and discussed social determinants of health with the patient that could potentially impact subsequent diagnosis and treatment plans. On repeat assessment of the patient, reevaluation revealed that the patient is doing well and is in no acute distress. Patient symptoms have improved since she arrived to our emergency department. Repeat vital signs were all reviewed and noted to be stable. Differential diagnosis and treatment plan were discussed with the patient at bedside. Patient agrees with discussion and after shared medical decision making agrees with discharge. All questions were answered to the patient's satisfaction. Patient will follow up with Orthopedics in 3-5 days. Script for [place] was sent to patient's pharmacy to use as needed for pain. Patient was provided with strict return precautions and instructed to return to the emergency department if any new or worsening symptoms develop. The patient was discharged in stable condition. Vital Signs Vital Signs: Vital Signs Temperature 97.6 F 01/04/25 02:12 Pulse Rate 94 01/04/25 02:12 Respiratory Rate 16 01/04/25 02:12 Blood Pressure 124/68 01/04/25 02:12 Pulse Oximetry 100 01/04/25 02:12 Oxygen Delivery Room Air 01/04/25 02:12 Temperature 97.6 F 01/04/25 02:12 Pulse Rate 94 01/04/25 02:12 Respiratory Rate 16 01/04/25 02:12 Blood Pressure 124/68 01/04/25 02:12 Pulse Oximetry 100 01/04/25 02:12 Oxygen Delivery Room Air 01/04/25 02:12 Discharge Plan Discharge Clinical Impression: Closed right humeral fracture Patient Disposition: Home, Self-Care Condition: Improved Instructions: Antibiotic Form, Arm Fracture in Adults (ED) Additional Instructions: Please follow-up with your orthopedic surgeon you were provided with today within the next 3-5 days. Use the prescribed pain medication as needed for pain. Return to the ED if any new or worsening symptoms develop. Patient Language: Amharic Prescriptions: New hydrocodone-acetaminophen 5-325 mg tablet 1 tablet PO Q8H PRN (Reason: pain) Qty: 14 0RF No Action colesevelam [WelChol] 625 mg tablet 1,250 mg PO BID estradiol [Estrace] 0.01 % (0.1 mg/gram) cream 1 g VAGINAL 3XW 90 Days Qty: 3 3RF escitalopram oxalate 10 mg tablet 10 mg PO DAILY Qty: 90 4RF cholecalciferol (vitamin D3) 125 mcg (5,000 unit) tablet 125 mcg PO DAILY multivitamin Tablet 1 tablet PO DAILY aspirin [Adult Aspirin Regimen] 81 mg tablet,delayed release (DR/EC) 81 mg PO DAILY loperamide [Imodium A-D] 2 mg capsule 2 mg PO DAILY Rx Instructions: after each loose stool until symptoms controlled;do not exceed 16 mg total dose in 24 hrs hydrocodone-acetaminophen 10-325 mg tablet 1 tablet PO Q8H PRN trazodone 150 mg tablet 150 mg PO QHS PRN (Reason: sleep) Qty: 90 3RF gabapentin 600 mg tablet 600 mg PO QID Qty: 360 1RF Follow-up/Referrals: Amando Lino MD [Physician] - 3 Days Susi,[place] APRN [Primary Care Provider] - Time of Disposition: 03:29
== END 2025-01-04 05:16 | disposition home or self-care (01) ==
PROVIDERS: Emergency Provider Emergency Medicine; PCP Nurse Practitioner Family
DX: S42.214A Unspecified nondisplaced fracture of surgical neck of right humerus, initial encounter for closed fracture (principal); R55 Syncope and collapse; E78.5 Hyperlipidemia, unspecified; J45.909 Unspecified asthma, uncomplicated; M85.80 Other specified disorders of bone density and structure, unspecified site; R32 Unspecified urinary incontinence; F41.1 Generalized anxiety disorder; Z85.048 Personal history of other malignant neoplasm of rectum, rectosigmoid junction, and anus; Z92.21 Personal history of antineoplastic chemotherapy; Z87.891 Personal history of nicotine dependence; Z79.899 Other long term (current) drug therapy; W18.39XA Other fall on same level, initial encounter
CPT/HCPCS: 73030; 99284; A9270

== ENCOUNTER 2025-02-09 13:52 | Outpatient (CLI) | payer MEDICARE, OTHER, SELFPAY ==
--- NOTE | ~2025-02-09 | XR_ITS ---
Right Shoulder Technique: AP and scapular Y views were obtained. Clinical History: Fracture COMPARISON: 01/27/2025 Findings: Transverse fracture of the surgical neck of the humerus is again present, with increased ca llus formation. Old, healed fracture of the distal right clavicle noted. The glenohumeral and acromio clavicular joint spaces are preserved. Soft tissues are unremarkable. Impression: Continued interval healing of fracture of the surgical neck of the right humerus with increased callu s formation. Alignment unchanged. Reviewed, dictated and finalized at location M. Impression: Continued interval healing of fracture of the surgical neck of the right humeru s with increased callus formation. Alignment unchanged.
== END 2025-02-09 13:53 | disposition home or self-care (01) ==
PROVIDERS: PCP Nurse Practitioner Family; Visit Provider Orthopaedic Surgery
DX: S42.301D Unspecified fracture of shaft of humerus, right arm, subsequent encounter for fracture with routine healing (principal); X58.XXXD Exposure to other specified factors, subsequent encounter
CPT/HCPCS: 73030

== ENCOUNTER 2025-03-23 13:05 | Outpatient (CLI) | payer MEDICARE, OTHER, SELFPAY ==
--- NOTE | ~2025-03-23 | XR_ITS ---
EXAM: XR shoulder RT min 2V DATE: 03/23/2025 13:18 HISTORY: S42.291D - Other displaced fracture of upper end of right... . COMPARISON: 02/09/2025. FINDINGS: Osteopenia old distal clavicular fracture, healed in deformity. Healing proximal right hum eral shaft fracture, stable alignment, with persistent angulation and displacement. Increased mature callus formation. No lytic or blastic lesions. No acute fracture detected. Visualized lung parenchyma is clear. IMPRESSION: Evolving healing changes in the proximal right humerus fracture. Reviewed, dictated and finalized at location K.
== END 2025-03-23 13:06 | disposition home or self-care (01) ==
PROVIDERS: PCP Nurse Practitioner Family; Visit Provider Orthopaedic Surgery
DX: S42.291D Other displaced fracture of upper end of right humerus, subsequent encounter for fracture with routine healing (principal); X58.XXXD Exposure to other specified factors, subsequent encounter
CPT/HCPCS: 73030

== ENCOUNTER 2025-04-17 08:02 | Outpatient (CLI) | payer MEDICARE, OTHER, SELFPAY ==
--- NOTE | ~2025-04-17 | MM_ITS ---
EXAMINATION: MM screening maico BI w gely HISTORY: Screening TECHNIQUE: Craniocaudal and mediolateral oblique 3-D tomosynthesis images were obtained and synthetic 2-D images were generated. CAD analysis was submitted and interpreted. COMPARISON: Comparison to multiple prior studies sequentially, with oldest reviewed study dated 08/05. BREAST PARENCHYMAL COMPOSITION: Not dense: There are scattered areas of fibroglandular density. FINDINGS: New clustered nodular asymmetries lateral aspect of the right breast on CC view, middle thi rd. The left breast is stable without evidence for malignancy. IMPRESSION: 1. New right breast asymmetries laterally on CC view. 2. Additional mammographic views and possible breast ultrasound are recommended. BI-RADS Category 0: Incomplete: Needs additional imaging evaluation. Reviewed, dictated and finalized at location [] IMPRESSION: 1. New right breast asymmetries laterally on CC view. 2. Additional mammographic views and possible breast ultrasound are recommended . BI-RADS Category 0: Incomplete: Needs additional imaging evaluation.
--- OUTSIDE RECORDS SUMMARY | 2025-04-17 08:07 | XMS_ITS | Referral Summary ---
Author Organization [facility] Medical Office Building B Address [address] [place] [address] Care Team Providers Care Bulk Pigment Reducer Name Role Phone Penny Goldman NP Primary Care Provider + Encounters Date Type Department Care Team Description 04/16/2025 1:00 PM CDT Therapy [facility] [place] [address] Kristopher Gordon, PT Other displaced fracture of upper end of right humerus, subsequent encounter for fracture with routine healing (Primary Dx) 04/13/2025 9:30 AM CDT Therapy [facility] [place] [address] Chandler Begum, PT Other displaced fracture of upper end of right humerus, subsequent encounter for fracture with routine healing (Primary Dx) 04/08/2025 9:15 AM CDT Therapy [facility] [place] [address] Lynn Carmona FROG SHAKER Other displaced fracture of upper end of right humerus, subsequent encounter for fracture with routine healing (Primary Dx) 04/06/2025 9:30 AM CDT Therapy [facility] [place] [address] Kristopher Gordon, PT Other displaced fracture of upper end of right humerus, subsequent encounter for fracture with routine healing (Primary Dx) 03/31/2025 9:30 AM CDT Therapy [facility] Physical [place] [address] Kristopher Gordon, PT Other displaced fracture of upper end of right humerus, subsequent encounter for fracture with routine healing (Primary Dx) 03/25/2025 9:15 AM CDT Therapy [facility] [place] [address] Lynn Carmona, FROG SHAKER Other displaced fracture of upper end of right humerus, subsequent encounter for fracture with routine healing (Primary Dx) 03/23/2025 9:30 AM CDT Therapy [facility] [place] [address] Kristopher Gordon, PT Other displaced fracture of upper end of right humerus, subsequent encounter for fracture with routine healing (Primary Dx) 03/20/2025 9:15 AM CDT Therapy [facility] [place] [address] Lynn Carmona, FROG SHAKER Other displaced fracture of upper end of right humerus, subsequent encounter for fracture with routine healing (Primary Dx) 03/19/2025 Results Follow-Up [facility] [address] [place] [address] Medical Office Building [address], [address] [place] [address] Alirio Miranda MD Clostridium difficile Toxin/GDH with Reflex to PCR Stool 03/18/2025 9:15 AM CDT Therapy [facility] [place] [place] [address] Chandler Begum, PT Other displaced fracture of upper end of right humerus, subsequent encounter for fracture with routine healing (Primary Dx) 03/16/2025 Orders Only [facility] [address] [place] [address] Medical Office Building [address], [address] [place] [address] Teressa Doshi NP Chronic diarrhea 03/13/2025 Telephone [facility] [address] [place] [address] 12th [place] [address] [place] [address] Becky Mario 03/13/2025 9:30 AM CDT Office Visit [facility] [address] [place] [address] Medical Office Building [address], [address] [place] [address] Alirio Miranda MD Low anterior resection syndrome (Primary Dx); Diarrhea, unspecified type; Chronic diarrhea 03/10/2025 9:15 AM CDT Therapy [facility] [place] [address] Lynn Carmona, FROG SHAKER Other displaced fracture of upper end of right humerus, subsequent encounter for fracture with routine healing (Primary Dx) 03/06/2025 8:30 AM CDT Therapy [facility] [place] [address] Lynn Carmona, FROG SHAKER Other displaced fracture of upper end of right humerus, subsequent encounter for fracture with routine healing (Primary Dx) 03/04/2025 8:30 AM CDT Therapy [facility] [place] [address] Lynn Carmona, FROG SHAKER Other displaced fracture of upper end of right humerus, subsequent encounter for fracture with routine healing (Primary Dx) 02/23/2025 Plan of Care Documentation [facility] [place] [address] 02/23/2025 11:30 AM CDT Therapy [facility] [place] [address] Kristopher Gordon, PT Other displaced fracture of upper end of right humerus, subsequent encounter for fracture with routine healing (Primary Dx) 01/26/2025 Telephone [facility] [address] [place] [address] 12th [place] [address] [place] [id number] Becky Mario Prior Auth 01/20/2025 Orders Only [facility] [address] [place] [address] Medical Office Building [address], [address] [place] [address] Alirio Miranda MD Low anterior resection syndrome (Primary Dx) from Last 3 Months Allergies No known active allergies Medications gabapentin (NEURONTIN) 600 mg tabletIndications: Neuropathic Pain Take 1 tablet (600 mg total) by mouth nightly 09/11/20 18 Active multivitamin capsuleIndications :Vitamin Deficiency Take 1 capsule by mouth every morning Active cholecalciferol (VITAMIN D-3) 2000 unit tabletIndications: supplement [...] BY MOUTH DAILY NEEDED 07/02/20 23 Active traZODone (DESYREL) 150 mg tablet Take 1 tablet (150 mg total) by mouth daily as needed 06/02/20 24 Active lidocaine-prilocai ne (EMLA) creamIndications:A dministration of Local Anesthesia Apply topically as needed for pain or irritation (Apply topically as needed for pain or irritation for up to 7 days) 30 g 1 03/13/20 25 Active loperamide (IMODIUM) 2 mg capsuleIndications :diarrhea Take 1 capsule (2 mg total) by mouth 4 (four) times a day as needed for diarrhea 120 capsule 3 03/13/20 25 Active naloxone (NARCAN) 4 mg/actuation spray,non-aerosolI ndications:Low anterior resection syndrome Administer 1 spray into affected nostril(s) as needed for opioid reversal or respiratory depression Call 911. Administer a single spray in one nostril. Repeat every 3 minutes as needed if no or minimal response. 1 each 1 03/13/20 25 Active ondansetron ODT (ZOFRAN-ODT) 4 mg disintegrating tabletIndications: Low anterior resection syndrome Take 1 tablet (4 mg total) by mouth every 12 (twelve) hours as needed (LARs) 60 tablet 2 03/13/20 25 Active colesevelam (WELCHOL) 625 mg tabletIndications: Chronic diarrhea Take 3 tablets (1,875 mg total) by mouth 2 (two) times a day with meals 540 tablet 3 03/16/20 25 026 Active opium 10 mg/mL (morphine equiv) tinctureIndication s:Low anterior resection syndrome Take 0.6 mL (6 mg total) by mouth every 6 (six) hours as needed for diarrhea 72 mL 03/13/20 25 025 Active Problems Problem Noted Date Diagnosed Date [...] (06/26/2022): Added automatically from request for surgery [id number] History of rectal cancer 06/26/2022 Overview (06/26/2022): Added automatically from request for surgery [id number] Closed fracture of part of f ibula with tibia, right, initial encounter 03/11/2021 Overview (03/11/2021): Added automatically from request for surgery [id number] Neuropathy 03/11/2021 Chronic pain 03/11/2021 Acute pain due to trauma 03/11/2021 Syncope and collapse 03/11/2021 Irritable bowel syndrome (IBS) 03/11/2021 History of colon cancer 04/28/2019 Overview (04/28/2019): Added automatically from request for surgery [id number] Neutropenia, drug-induced 09/21/2016 Vaginal atrophy 09/21/2016 Pulmonary nodules 07/12/2016 Palmar plantar erythrodysaesthesia 05/02/2016 Chronic diarrhea 04/12/2016 History of ETOH abuse 04/12/2016 Rectal cancer 02/15/2016 Immunizations Immunization Administration Dates Next Due Influenza, Quadrivalent, Spl [...] often do you have a drink containing alcohol? Monthly or less 03/13/2025 Q2: How many drinks containi ng alcohol do you have on a typical day when you are drinking? Patient does not drink Q3: How often do you have si x or more drinks on one occasion? Never 03/13/2025 Personal Safety Answer Date Recorded Have you ever been in or are you currently in a harmful physical or emotional relationship or is someone making you feel afraid or unsafe? 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 Gender Identity Not on file Sexual Orientation Not on file Last Filed Vital Signs Vital Sign Reading Time Taken Comments Blood Pressure 134/75 03/13/2025 9:25 AM CDT Pulse 82 03/13/2025 9:25 AM CDT Temperature 36.2 C (97.2 F) 07/18/2023 10:15 AM CDT Respiratory Rate 17 07/18/2023 10:40 AM CDT Oxygen Saturation 100% 07/18/2023 10:40 AM CDT Inhaled Oxygen Concentration - - Weight 57.6 kg (127 lb) 03/13/2025 9:25 AM CDT Height 171.5 cm (5' 7.5) 03/13/2025 9:25 AM CDT Body Mass Index 19.6 03/13/2025 9:25 AM CDT Plan of Treatment Not on file Medical Devices Implanted Type Area Group Rooms Coordinator Device Identifier Shelf Expiration Date Model / Serial / Lot [employer]Rich[employer]/Ort [id number] [place]-Nail 10mm 33cm Tibia Nail Intramedullary Titanium - [id number] Implanted:Qty: 1 on 03/11/2021 by Earnestine Carmona MD at [facility] Right: Tibia [employer]/O rtho [id number] 07/30/2029 [id number] / / [id number] [employer]/Rich[employer]/Ort ho [id number] Evos 3.5mm 32mm Self Tap Cortex Screw Bone Sterile - [id number] Implanted:Qty: 2 on 03/11/2021 by Earnestine Carmona MD at [facility] Right: Tibia [employer]/O rtho [id number] / / [employer]/Rich[employer]/Ort ho [id number] 5mm 25mm Low Profile Internal Hex Femur Screw Bone Trigen - [id number] Implanted:Qty: 1 on 03/11/2021 by Earnestine Carmona MD at [facility] Right: Tibia [employer]Rich[employer]/O rtho [id number] / / [employer]/Rich[employer]/Ort ho [id number] 5mm 42.5mm Low Profile Internal Hex Femur Screw Bone Trigen - [id number] Implanted:Qty: 1 on 03/11/2021 by Earnestine Carmona MD at [facility] Right: Tibia [employer]/O rtho [id number] / / [employer]Rich[employer]/Ort ho [id number] 5mm 30mm Low Profile Internal Hex Femur Screw Bone Trigen - [id number] Implanted:Qty: 1 on 03/11/2021 by Earnestine Carmona MD at [facility] Right: Tibia [employer]/O rtho [id number] / / [employer]Rich[employer]/Ort ho [id number] 5mm 35mm Low Profile Internal Hex Femur Screw Bone Trigen - [id number] Implanted:Qty: 2 on 03/11/2021 by Earnestine Carmona MD at [facility] Right: Tibia [employer]/O rtho [id number] / / [employer]Rich[employer]/Ort ho [id number] 5mm 45mm Low Profile Internal Hex Femur Screw Bone Trigen - [id number] Implanted:Qty: 1 on 03/11/2021 by Earnestine Carmona MD at [facility] Right: Tibia [employer]Rich[employer]/O rtho [id number] / / Procedures Procedure Name Priority Date/Time Associated Diagnosis Comments CLOSTRIDIUM DIFFICILE TOXIN/GDH WITH REFLEX TO PCR Routine 03/18/2025 12:46 PM CDT Diarrhea, unspecified type DEXA TBS AXIAL SKELETON BONE DENSITY 1 OR MORE SITES Schedule Routine, Read Routine (OP Routine) 06/10/2024 12:30 PM CDT Localized osteoporosis without current pathological fracture COLONOSCOPY 07/18/2023 9:47 AM CDT from Last 3 Months or Most Recently Relevant to Health Maintenance Results * Clostridium difficile Toxin/GDH with Reflex to PCR Stool (03/18/2025 12:46 PM CDT) C difficile Toxins/GDH w/refl to PCR [facility] Comment: CLOSTRIDIUM DIFFICILE TOXIN/GDH W/REFL TO PCR Micro Number: [id number] Test Status: Final Specimen Source: Stool Specimen Quality: Adequate GDH Antigen: Not Detected Toxin A and B: Not Detected COMMENT: No toxigenic C. difficile detected For additional information, please refer to http://education.[employer] Speech/faq/RHX686 (This link is being provided for informational/educational purposes only.) Stool 03/18/2025 12:4 6 PM CDT 03/19/2025 2:26 AM CDT Narrative [facility] - 03/19/2025 10:43 AM CDT FASTING:NO FASTING: NO Alirio Miranda MD LAB MICROBIOLOGY - NERAL ORDERABLES Final Result [facility] [address] [place] [address] * Dexa TBS Axial Skeleton Bone Density 1 or more sites (06/10/2024 12:30 PM CDT) Anatomical Region Laterality Modality Wrist, Body N/A Radiographic Diandra ging Narrative 06/26/2024 3:02 PM CDT Patient Name: Nisreen Rodney Date of : 1960 Date of scan: 06/10/2024 Bone mineral density was performed on a [employer] Discovery Densitometer. Based on machine cross-calibration and precision studies [...] by the International Society of Clinical Densitometry. [id number] us Janet Robison MD IMG DXA PROCEDURES Final Re sult * COLONOSCOPY (07/18/2023 9:47 AM CDT) Anatomical Region Laterality Modality Other Narrative Procedure Note Alirio Miranda MD - 07/18/2023 9:47 AM CDT ENDOSCOPY LAB Patient Name: Nisreen Rodney Procedure Date: 07/18/2023 9:47 AM Date of : 1960 Admit Type: Outpatient Age: 63 Gender: Female Attending MD: Alirio Miranda M.D. Room: [facility] ENDOSCOPY ROOM 03 Note Status: Finalized Procedure: [...] The scope was passed under direct vision.The [id number] was introduced through the anusand advanced to [...] business hours - Please call theNurse Coordinator: [phone] After hours, evening, nights, weekends and holidays- Please call the hospital hand inserter operator at and ask for the GI fellow stone layout marker. Attending Participation: I personally performed the entire procedure. Electronically signed by Alirio Miranda MD Alirio Miranda M.D. 07/18/2023 10:20:18 AM Number of Addenda: 0 Note Initiated On: 07/18/2023 9:47 AM Alirio Miranda MD ENDOSCOPY PROCEDURES Final Result from Last 3 Months or Most Recently Relevant to Health Maintenance Insurance [facility] MEDICARE [facility] MEDICARE [facility] Advance Directives For more information, please contact: [phone] Documents on File Type Date Recorded Patient Motel Manager Expl anation ADVANCE DIRECTIVE 04/03/2023 6:23 AM Power of Beater Machine Operator-Medical * Full Code (Latest Code Status on File) Date Activated Date Inactivated Comments 07/18/2023 8:31 AM 07/18/2023 3:05 PM * Full Code Date Activated Date Inactivated Comments 07/18/2022 8:55 AM 07/18/2022 3:13 PM * Full Code Date Activated Date Inactivated Comments 03/11/2021 9:56 PM 03/17/2021 8:58 PM * Full Code Date Activated Date Inactivated Comments 07/16/2019 7:21 AM 07/16/2019 2:13 PM Care Teams Bulk Pigment Reducer Relationship Specialty Start Date End Date Penny Goldman NP [facility] [address] [address] PCP - General Nurse Practitioner 02/29/24
--- OUTSIDE RECORDS SUMMARY | 2025-04-17 08:07 | XMS_ITS ---
Author Organization [facility] Medical Office Building B Address [address] [place] [address] Care Team Providers Care Proof Tester Name Role Phone Penny Goldman TRAVEL TRAILER COMPONENTS ASSEMBLER Primary Care Provider + Active Problems Problem [...] (06/26/2022): Added automatically from request for surgery [id number] History of rectal cancer 06/26/2022 Overview (06/26/2022): Added automatically from request for surgery [id number] Closed fracture of part of f ibula with tibia, right, initial encounter 03/11/2021 Overview (03/11/2021): Added automatically from request for surgery [id number] Neuropathy 03/11/2021 Chronic pain 03/11/2021 Acute pain due to trauma 03/11/2021 Syncope and collapse 03/11/2021 Irritable bowel syndrome (IBS) 03/11/2021 History of colon cancer 04/28/2019 Overview (04/28/2019): Added automatically from request for surgery [id number] Neutropenia, drug-induced 09/21/2016 Vaginal atrophy 09/21/2016 Pulmonary nodules 07/12/2016 Palmar plantar erythrodysaesthesia 05/02/2016 Chronic diarrhea 04/12/2016 History of ETOH abuse 04/12/2016 Rectal cancer 02/15/2016 Current Treatment and Therapy Plans No current plan information found. Past Treatment and Therapy Plans No past plan information found. Lifetime Dose Tracking * Chemical Lifetime Dose Automatic Entry Manual Entr y Fluoro Time 4.995 minutes 4.995 minutes 0 minutes Air kerma at the reference point (Ka,r) 12.08 mGy 1 2.08 mGy 0 mGy DLP 825 mGycm 825 mGycm 0 mGycm
--- OUTSIDE RECORDS SUMMARY | 2025-04-17 08:07 | XMS_ITS | Encounter Summary ---
Author Organization [facility] Address [address] [place] [address] Phone Care Team Providers Care Thermal Surfacing Machine Operator Name Role Phone Penny Goldman NP Primary Care Provider + Encounter Details Date Type Department Care Team (Late st Contact Info) Description 03/19/2025 Results Follow-Up [facility] [address] [place] [address] Medical Office Building [address], [address] [place] [address] Alirio Miranda MD [address] [place] [address] Clostridium difficile Toxin/GDH with Reflex to PCR Stool Social History Tobacco Use Types Packs/Day Years Used Date Smoking Tobacco: Former Cigarettes 0.1 18 1 975 - 1992 Smokeless Tobacco: Never Comments:Quit age 33; Gum da lucia Alcohol Use Standard Drinks/Week Comments Yes 14 [...] on file 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
--- OUTSIDE RECORDS SUMMARY | 2025-04-17 08:07 | XMS_ITS | Encounter Summary ---
Author Organization [facility] Address [address] [place] [address] Care Team Providers Care Nuclear Monitoring Technician Name Role Phone Penny Goldman NP Primary Care Provider + Reason for Visit * Consultation (Routine) - Authorized Specialty Diagnoses / Procedures Referred By Contac t Referred To Contact Physical Therapy Diagnoses Other displaced fracture of upper end of right humerus, subsequent encounter for fracture with routine healing Amando Lino MD [address] [address] Phone: tel: fax: [facility] [place] [address] Phone: tel: fax: Referral ID Status Reason Start Date Expiration Date Visits Requested Visits Authorized [id number] Authorized Evaluate and Treat 02/10/2025 03/12/2026 24 24 Encounter Details Date Type Department Care Team (Late st Contact Info) Description 04/16/2025 1:00 PM CDT Therapy [facility] Physical Therapy [place] [id number] Kristopher Gordon, PT Other displaced fracture of upper end of right humerus, subsequent encounter for fracture with routine healing (Primary Dx) Social History Tobacco Use Types Packs/Day Years [...] on file 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 Patient knows that it does take time to recover from her injury, but is hopeful to make the progress sooner than later. Objective: POSTURE: rounded shoulders ROM: Shoulder AROM (seated and measured in degrees): Flexion R = 135 L = 165 Extension R = 50 L = 50 Abduction R = 120 L = 170 Functional reach ER R to T3 L to T3 Functional reach IR R to T10 L to T6 STRENGTH: Shoulder: WFL ROM Flexion R = 5/5 L = 5/5 Extension R = 5/5 L = 5/5 Abduction R = 5/5 L = 5/5 ER R = 5/5 L = 5/5 IR R = 5/5 L = 5/5 Scapular strength: Middle trap R = 5/5 L = 5/5 Rhomboids R = 5/5 L = 5/5 PALPATION: no tenderness Treatment Provided: MHP x 8 min prior to stretching UBE 3 min each direction level 2 Manual shoulder stretching and joint mobilization grade 2 standing shoulder flexion to ABCs - 1.5 pound ankle weight on wrist * Pulleys flexion and abduction* Wall slides x 10 flexion and side to side with 1 1/2#* Wall circles 15x CW and CCW* -Standing press up with bar 3 lb x10* Shoulder flexion and scaption with 1 pound weight x 15 reps* -Pushups at squat rack bar* Chopping with red medicine ball x 15 move up to yellow* Shoulder rows and extension with black theraband x 15* IR with black theraband x 15* ER with green theraband x 15* Bicep curls with blue t band x 15* Tricep pull downs with blue t band x 15 reps* Ice after treatment x 10 min Did not occur* Assessment: Patient has not met any goals and although she has had 20 to 30 degrees in improvement in AROM of shoulder flexion, abduction, and IR still is not what she reports as functional. Goals LTG 1:: Independent with HEP Goal status: progressing LTG 2:: able to put on bra Goal status: Not met LTG 3:: R shoulder flexion and abduction to 165 degrees Goal status: Not met Plan: Request an additional 8 visits at 1 time a week to continue to work on improving AROM to become functional. Start Time: 1302 End Time:1345 Kristopher Gordon PT documented in this encounter Plan of Treatment Not on file documented as of this encounter Visit Diagnoses Diagnosis Other displaced fracture of upper end of right humerus, subsequent encounter for fracture with routine healing- Primary documented in this encounter Care Teams Nuclear Monitoring Technician Relationship Specialty Start Date End Date Penny Goldman NP [facility] [address] [address] PCP - General Nurse Practitioner 02/29/24 documented as of this encounter
--- OUTSIDE RECORDS SUMMARY | 2025-04-17 08:07 | XMS_ITS | Clinical Summary ---
Author Organization [facility] Address [address] [place] [address] Care Team Providers Care Plate Molder Name Role Phone Jeff Beckford MD Primary Care Provider [phone] Allergies No known active allergies Medications escitalopram oxalate (LEXAPRO) 10 mg tablet Take by mouth. 6 Active estradiol (ESTRACE) 0.01% (0.1 mg/g) vaginal cream INSERT 1/2 GRAM INTO VAGINA THREE TIMES PER WEEK AT BEDTIME, ALSO USE PEA SIZED AMOUNT TO EXTERNAL GENITALIA 3 TIMES WEEKLY 8 Active fluticasone (FLONASE) 50 mcg/spray [place], Suspension 1-2 SPRAYS INTO EACH NOSTRIL DAILY [...] Encounters Date Type Department Care Team Description 03/24/2025 External Device Data STL ABSTRACTION Provider, Abstract 01/21/2025 External Device Data STL ABSTRACTION Provider, Abstract [...] Date Smoking Tobacco: Former Cigarettes 1 15 - 1994 Smokeless Tobacco: Never Tobacco Cessation:Counseling [...] Sign Reading Time Taken Comments Blood Pressure 117/78 12/15/2024 1:11 PM CARD GRINDER Pulse 85 12/15/2024 1:11 PM CARD GRINDER Temperature 35.9 C (96.7 F) 12/15/2024 1:11 PM CARD GRINDER Respiratory Rate 15 12/15/2024 1:11 PM CARD GRINDER Oxygen Saturation 94% 12/15/2024 1:11 PM CARD GRINDER Inhaled Oxygen Concentration - - Weight 58.6 kg (129 lb 3.2 oz) 12/15/2024 1:11 P M CARD GRINDER Height 172.7 cm (5' 8) 03/13/2022 2:36 PM CDT Body Mass Index 19.64 03/13/2022 2:36 PM CDT Plan of Treatment Upcoming Encounters Date Type Department Care Team (Late st Contact Info) Description 12/16/2025 1:00 PM CARD GRINDER Office Visit [facility]ology - [place] [address] [facility] [address] [place] [address] Nick Louis MD [address] [facility] [address] [place] [address] Health Maintenance Due Date Last Done Comments PNEUMOCOCCAL VACCINE 50+ YEA RS (1 of 1 - PCV) 2008 ZOSTER VACCINE (1 of 2) 2008 INFLUENZA VACCINE (#1) 2024 1, 08/06/2020, 07/20/2020, Additional history exists BREAST CANCER SCREENING 02/24/2025 02/25/2024, 02/24 DTAP/TDAP/TD VACCINES (2 - T d or Tdap) 11/05/2028 11/05/2018 OSTEOPOROSIS SCREENING 06/10/2029 4, 06/10/2024, 05/10/2023, Additional history exists RSV VACCINE (60+ or ) (1 - 1-dose 75+ series) 2033 Insurance MEDICARE PART A AND B [employer] [place] [id number] Care Teams Plate Molder Relationship Specialty Start Date End Date Jeff Beckford MD [address] [place] [address] PCP - General Family Practice 08/05/18
--- OUTSIDE RECORDS SUMMARY | 2025-04-17 08:07 | XMS_ITS | Encounter Summary ---
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
--- OUTSIDE RECORDS SUMMARY | 2025-04-17 08:07 | XMS_ITS | Clinical Summary ---
Author Organization [facility] Medical Office Building [facility] Address [address] [place] [address] Care Team Providers Care Test Automation Architect Name Role Phone Penny Goldman RESIZER OPERATOR Primary Care Provider + Allergies No known [...] (06/26/2022): Added automatically from request for surgery [id number] History of rectal cancer 06/26/2022 Overview (06/26/2022): Added automatically from request for surgery [id number] Closed fracture of part of f ibula with tibia, right, initial encounter 03/11/2021 Overview (03/11/2021): Added automatically from request for surgery [id number] Neuropathy 03/11/2021 Chronic pain 03/11/2021 Acute pain due to trauma 03/11/2021 Syncope and collapse 03/11/2021 Irritable bowel syndrome (IBS) 03/11/2021 History of colon cancer 04/28/2019 Overview (04/28/2019): Added automatically from request for surgery [id number] Neutropenia, drug-induced 09/21/2016 Vaginal atrophy 09/21/2016 Pulmonary nodules 07/12/2016 Palmar plantar erythrodysaesthesia 05/02/2016 Chronic diarrhea 04/12/2016 History of ETOH abuse 04/12/2016 Rectal cancer 02/15/2016 Encounters Date Type Department Care Team Description 04/16/2025 1:00 PM CDT Therapy [facility] [place] [address] Kristopher Gordon, PT Other displaced fracture of upper end of right humerus, subsequent encounter for fracture with routine healing (Primary Dx) 04/13/2025 9:30 AM CDT Therapy [facility] [place] [address] Chandler Begum, PT Other displaced fracture of upper end of right humerus, subsequent encounter for fracture with routine healing (Primary Dx) 04/08/2025 9:15 AM CDT Therapy [facility] Physical [facility] [place] [address] Lynn Carmona, SENIOR CUSTOMER SERVICE REPRESENTATIVE Other displaced fracture of upper end of right humerus, subsequent encounter for fracture with routine healing (Primary Dx) 04/06/2025 9:30 AM CDT Therapy [facility] Physical [facility] - [place] [address] Kristopher Gordon, PT Other displaced fracture of upper end of right humerus, subsequent encounter for fracture with routine healing (Primary Dx) 03/31/2025 9:30 AM CDT Therapy [facility] [place] [address] Kristopher Gordon, PT Other displaced fracture of upper end of right humerus, subsequent encounter for fracture with routine healing (Primary Dx) 03/25/2025 9:15 AM CDT Therapy [facility] - [place] [address] Lynn Carmona, SENIOR CUSTOMER SERVICE REPRESENTATIVE Other displaced fracture of upper end of right humerus, subsequent encounter for fracture with routine healing (Primary Dx) 03/23/2025 9:30 AM CDT Therapy [facility] [place] [address] Kristopher Gordon, PT Other displaced fracture of upper end of right humerus, subsequent encounter for fracture with routine healing (Primary Dx) 03/20/2025 9:15 AM CDT Therapy [facility] [place] [address] Lynn Carmona PTA Other displaced fracture of upper end of right humerus, subsequent encounter for fracture with routine healing (Primary Dx) 03/19/2025 Results Follow-Up [facility] Gastroenterology [address] [place] [address] Medical Office Building [address], [address] [place] [phone] Alirio Miranda MD Clostridium difficile Toxin/GDH with Reflex to PCR Stool 03/18/2025 9:15 AM CDT Therapy [facility] [place] [address] Chandler Begum, PT Other displaced fracture of upper end of right humerus, subsequent encounter for fracture with routine healing (Primary Dx) 03/16/2025 Orders Only [facility] Gastroenterology [address] [place] [address] Medical Office Building [address], [address] [place] [address] Teressa Doshi, KHUSHI Chronic diarrhea 03/13/2025 9:30 AM CDT Office Visit [facility] Gastroenterology [address] [place] [address] Medical Office Building [address], [address] [place] [phone] Alirio Miranda MD Low anterior resection syndrome (Primary Dx); Diarrhea, unspecified type; Chronic diarrhea 03/13/2025 Telephone [facility] Gastroenterology [facility] 12th [place] [address] [place] [address] Becky Mario 03/10/2025 9:15 AM CDT Therapy [facility] [place] [address] Lynn Carmona, MARIELA Other displaced fracture of upper end of right humerus, subsequent encounter for fracture with routine healing (Primary Dx) 03/06/2025 8:30 AM CDT Therapy [facility] [place] [address] Lynn Carmona, SENIOR CUSTOMER SERVICE REPRESENTATIVE Other displaced fracture of upper end of right humerus, subsequent encounter for fracture with routine healing (Primary Dx) 03/04/2025 8:30 AM CDT Therapy [facility] Physical Therapy [place] [address] Lynn Carmona, SENIOR CUSTOMER SERVICE REPRESENTATIVE Other displaced fracture of upper end of right humerus, subsequent encounter for fracture with routine healing (Primary Dx) 02/23/2025 11:30 AM CDT Therapy [facility] [place] [address] Kristopher Gordon, PT Other displaced fracture of upper end of right humerus, subsequent encounter for fracture with routine healing (Primary Dx) 02/23/2025 Plan of Care Documentation [facility] [place] [address] 01/26/2025 Telephone [facility] Gastroenterology [address] [place] [address] Medicine 12th [place] [address] [place] [phone] Becky Mario Prior Auth 01/20/2025 Orders Only [facility] Gastroenterology [address] [facility] Medical Office Building [address], [address] [place] [address] Alirio Miranda MD Low anterior resection syndrome (Primary Dx) from Last 3 Months Immunizations Immunization Administration Dates Next Due Influenza, [...] History Date Comments Chronic diarrhea Rectal cancer (HCC) 2016 s/p chemorad iation Depression Asthma Motion sickness Family History Medical [...] on file Legal Sex Female 12:17 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 Gender Identity Not on file Sexual Orientation [...] 03/13/2025 9:25 AM CDT Plan of Treatment Health Maintenance Due Date Last Done Comments Breast Cancer Screening-Mammogram 1960 Depression Screening 1960 Hepatitis C Screening 1960 Hepatitis B Screening 1976 Pneumococcal vaccine 65+ (1 of 2 - PCV) 1977 Zoster Vaccine (1 of 2) 1977 Well Visit 65+ 2023 Fall Risk Assessment 07/18/2024 07/18/2023 Influenza Vaccine (Season Ended) 2025 08/22/2021, 07/20/2020, 08/12/2019, Additional history exists Osteoporosis Screening-Bone Density Scan 06/10/2026 06/10/2024, 05/10/2023, 05/10/2023, Additional history exists DTaP/Tdap/Td Vaccine (2 - Td or Tdap) 11/05/2028 11/05/2018 Colon Cancer Screening-Colonoscopy 07/18/2033 07/18/2023, 07/18/2022, 07/16/2019 Colon Cancer Screening-CT Colonography Discontinued 07/18/2023, 07/18/2022, 07/16/2019 Colon Cancer Screening-DNA Stool Discontinued 07/18/2023, 07/18/2022, 07/16/2019 Colon Cancer Screening-FIT Discontinued 07/18, 07/18/2022, 07/16/2019 Colon Cancer Screening-Sigmoidoscopy Discontinued 07/18/2023, 07/18/2022, 07/16/2019 Medical Devices Implanted Type Area Concentrator Operator Device Identifier Shelf Expiration Date Model / Serial / Lot [employer]/Richco/Ort ho [id number] [place]-Nail 10mm 33cm Tibia Nail Intramedullary Titanium - [id number] Implanted:Qty: 1 on 03/11/2021 by Earnestine Carmona MD at [facility] Right: Tibia [employer]Rich[employer]/O rtho [id number] 07/30/2029 [id number] / / [id number] [employer]/Rich[employer]/Ort ho [id number] Evos 3.5mm 32mm Self Tap Cortex Screw Bone Sterile - [id number] Implanted:Qty: 2 on 03/11/2021 by Earnestine Carmona MD at [facility] Right: Tibia [employer]/Rich[employer]/O rtho [id number] / / [employer]/Rich[employer]/Ort ho [id number] 5mm 25mm Low Profile Internal Hex Femur Screw Bone Trigen - [id number] Implanted:Qty: 1 on 03/11/2021 by Earnestine Carmona MD at [facility] Right: Tibia [employer]/O rtho [id number] / / [employer]/Rich[employer]/Ort ho [id number] 5mm 42.5mm Low Profile Internal Hex Femur Screw Bone Trigen - [id number] Implanted:Qty: 1 on 03/11/2021 by Earnestine Carmona MD at [facility] Right: Tibia [employer]/O rtho [id number] / / [employer]/Rich[employer]/Ort ho [id number] 5mm 30mm Low Profile Internal Hex Femur Screw Bone Trigen - [id number] Implanted:Qty: 1 on 03/11/2021 by Earnestine Carmona MD at [facility] Right: Tibia [employer]/O rtho [id number] / / [employer]/Rich[employer]/Ort ho [id number] 5mm 35mm Low Profile Internal Hex Femur Screw Bone Trigen - [id number] Implanted:Qty: 2 on 03/11/2021 by Earnestine Carmona MD at [facility] Right: Tibia [employer]/O rtho [id number] / / [employer]Rich[employer]/Ort ho [id number] 5mm 45mm Low Profile Internal Hex Femur Screw Bone Trigen - [id number] Implanted:Qty: 1 on 03/11/2021 by Earnestine Carmona MD at [facility] Right: Tibia [employer]Rich[employer]/O rtho [id number] / / Procedures Procedure Name Priority Date/Time [...] CDT) C difficile Toxins/GDH w/refl to PCR [facility] Comment: CLOSTRIDIUM DIFFICILE TOXIN/GDH W/REFL TO PCR Micro Number: [id number] Test Status: Final Specimen Source: Stool Specimen Quality: Adequate GDH Antigen: Not Detected Toxin A and B: Not Detected COMMENT: No toxigenic C. difficile detected For additional information, please refer to http://education.Smartfield/faq/SOC648 (This link is being provided for informational/educational purposes only.) Stool 03/18/2025 12:4 6 PM CDT 03/19/2025 2:26 AM CDT Narrative [facility] - 03/19/2025 10:43 AM CDT FASTING:NO FASTING: NO us Alirio Miranda MD LAB MICROBIOLOGY - [employer] NERAL ORDERABLES Final Result [facility] [address] [place] [address] * Dexa TBS Axial Skeleton Bone Density 1 or more sites (06/10/2024 12:30 PM CDT) Anatomical Region Laterality Modality Wrist, Body N/A Radiographic Diandra ging Narrative 06/26/2024 3:02 PM CDT Patient Name: Nisreen Rodney Date of : 1960 Date of scan: 06/10/2024 Bone mineral density was performed on a [employer]oS[employer]ace Discovery Densitometer. Based on machine cross-calibration and [...] by the International Society of Clinical Densitometry. [id number] us Janet Robison MD IMG DXA PROCEDURES Final Re sult * COLONOSCOPY (07/18/2023 9:47 AM CDT) Anatomical Region Laterality Modality Other Narrative Procedure Note Alirio Miranda MD - 07/18/2023 9:47 AM CDT ENDOSCOPY LAB Patient Name: Nisreen Rodney Procedure Date: 07/18/2023 9:47 AM Date of : 1960 Admit Type: Outpatient Age: 63 Gender: Female Attending MD: Alirio Miranda M.D. Room: [facility] ENDOSCOPY ROOM 03 Note Status: Finalized Procedure: Colonoscopy Indications: High risk colon cancer surveillance: Personalhistory of colonic polyps, 1 year ago w/ 18 mm sessilepolyp in ascending colon; Personal history of rectalcancer s/p LAR, chemo, XRT Providers: Alirio Miranda M.D. Referring MD: Jaun Watters.Ilda Medicines: Monitored Anesthesia Care Complications: No immediate [...] The scope was passed under direct vision.The [id number] was introduced through the anusand advanced to [...] During normal business hours - [facility] [place]: [phone] After hours, evening, nights, weekends and holidays- Please call the hospital wire loop machine operator at and ask for the GI fellow orthodontic technician assistant. Attending Participation: I personally performed the entire procedure. Electronically signed by Alirio Miranda MD Alirio Miranda M.D. 07/18/2023 10:20:18 AM Number of Addenda: 0 Note Initiated On: 07/18/2023 9:47 AM Alirio Miranda MD ENDOSCOPY PROCEDURES Final Result from Last 3 Months or Most Recently Relevant to Health Maintenance Insurance [facility] MEDICARE [place] MEDICARE [place] Advance Directives For more information, please contact: [phone] Documents on File Type Date Recorded Patient Barrel Tester And Drainer Expl anation ADVANCE DIRECTIVE 04/03/2023 6:23 AM Power of Transportation Aid-Medical * Full Code (Latest Code Status on File) Date Activated Date Inactivated Comments 07/18/2023 8:31 AM 07/18/2023 3:05 PM * Full Code Date Activated Date Inactivated Comments 07/18/2022 8:55 AM 07/18/2022 3:13 PM * Full Code Date Activated Date Inactivated Comments 03/11/2021 9:56 PM 03/17/2021 8:58 PM * Full Code Date Activated Date Inactivated Comments 07/16/2019 7:21 AM 07/16/2019 2:13 PM Care Teams Test Automation Architect Relationship Specialty Start Date End Date Penny Goldman NP [address] [place] [address] [address] PCP - General Nurse Practitioner 02/29/24
== END 2025-04-17 08:03 | disposition home or self-care (01) ==
LOC: ANHIMG 08:04
PROVIDERS: PCP Family Medicine; Visit Provider Family Medicine
DX: Z12.31 Encounter for screening mammogram for malignant neoplasm of breast (principal); R92.8 Other abnormal and inconclusive findings on diagnostic imaging of breast
CPT/HCPCS: 77063; 77067

== ENCOUNTER 2025-05-13 09:54 | Outpatient (CLI) | payer MEDICARE, OTHER, SELFPAY ==
--- NOTE | ~2025-05-13 | MMUS_ITS ---
EXAMINATION: MM diagnostic maico RT w gely, US breast RT limited HISTORY: Follow-up right breast asymmetry TECHNIQUE: Additional 3-D tomosynthesis images of the right breast were performed and synthetic 2-D i mages were generated. CAD analysis was submitted and interpreted. High resolution Limited right breas t ultrasound was performed. COMPARISON: Comparison to multiple prior studies sequentially, with oldest reviewed study dated 08/05. BREAST PARENCHYMAL COMPOSITION: Not dense: There are scattered areas of fibroglandular density. FINDINGS: MAMMOGRAPHIC FINDINGS: There are no suspicious masses, calcifications or architectural distortion in the right breast to sug gest malignancy. ULTRASOUND: Limited right breast ultrasound normal heterogeneous echotexture without focal solid or cystic mass. IMPRESSION: 1. No evidence for malignancy in the right breast. 2. Routine yearly screening mammogram and regular clinical breast examination are recommended. BI-RADS Category 1: Negative Reviewed, dictated and finalized at location A. IMPRESSION: 1. No evidence for malignancy in the right breast. 2. Routine yearly screening mammogram and regular clinical breast examination a re recommended. BI-RADS Category 1: Negative
--- OUTSIDE RECORDS SUMMARY | 2025-05-13 10:01 | XMS_ITS | Clinical Summary ---
Author Organization [facility] Address [address] [place] [address] Care Team Providers Care High Frequency Mill Operator Name Role Phone Jeff Beckford MD Primary Care Provider [phone] Allergies No known active allergies Medications escitalopram oxalate (LEXAPRO) 10 mg tablet Take by mouth. 6 Active estradiol (ESTRACE) 0.01% (0.1 mg/g) vaginal cream INSERT 1/2 GRAM INTO VAGINA THREE TIMES PER WEEK AT BEDTIME, ALSO USE PEA SIZED AMOUNT TO EXTERNAL GENITALIA 3 TIMES WEEKLY 8 Active fluticasone (FLONASE) 50 mcg/spray [place], Suspension 1-2 SPRAYS INTO EACH NOSTRIL DAILY [...] Comments Blood Pressure 117/78 12/15/2024 1:11 PM VETERINARY SURGERY TECHNICIAN Pulse 85 12/15/2024 1:11 PM VETERINARY SURGERY TECHNICIAN Temperature 35.9 C (96.7 F) 12/15/2024 1:11 PM VETERINARY SURGERY TECHNICIAN Respiratory Rate 15 12/15/2024 1:11 PM VETERINARY SURGERY TECHNICIAN Oxygen Saturation 94% 12/15/2024 1:11 PM VETERINARY SURGERY TECHNICIAN Inhaled Oxygen Concentration - - Weight 58.6 kg (129 lb 3.2 oz) 12/15/2024 1:11 P M VETERINARY SURGERY TECHNICIAN Height 172.7 cm (5' 8) 03/13/2022 2:36 PM CDT Body Mass Index 19.64 03/13/2022 2:36 PM CDT Plan of Treatment Upcoming Encounters Date Type Department Care Team (Late st Contact Info) Description 12/16/2025 1:00 PM VETERINARY SURGERY TECHNICIAN Office Visit [facility] Oncology and Hematology - [address] [place] [address] Nick Louis MD [address] [facility] [address] [place] [address] Health Maintenance Due Date Last Done Comments PNEUMOCOCCAL VACCINE 50+ YEA RS (1 of 1 - PCV) 2008 ZOSTER VACCINE (1 of 2) 2008 BREAST CANCER SCREENING 02/24/2025 02/25/2024, 02/24 INFLUENZA VACCINE (#1) 2025 , 08/06/2020, 07/20/2020, Additional history exists DTAP/TDAP/TD VACCINES (2 - T d or Tdap) 11/05/2028 11/05/2018 OSTEOPOROSIS SCREENING 06/10/2029 , 06/10/2024, 05/10/2023, Additional history exists RSV VACCINE (60+ or ) (1 - 1-dose 75+ series) 2033 Insurance MEDICARE PART A AND B [employer] [facility] Care Teams High Frequency Mill Operator Relationship Specialty Start Date End Date Jeff Beckford MD [address] [place] [address] PCP - General Family Practice 08/05/18
--- OUTSIDE RECORDS SUMMARY | 2025-05-13 10:02 | XMS_ITS | Clinical Summary ---
Author Organization [facility] Medical Office Building [address] Address [address] [place] [address] Care Team Providers Care Car Inspection And Repair Manager Name Role Phone Penny Goldman PARTS MANAGER Primary Care Provider + Allergies No known [...] 540 tablet 3 03/16/20 25 026 Active Active Problems Problem Noted Date Diagnosed [...] (06/26/2022): Added automatically from request for surgery [id number] History of rectal cancer 06/26/2022 Overview (06/26/2022): Added automatically from request for surgery [id number] Closed fracture of part of f ibula with tibia, right, initial encounter 03/11/2021 Overview (03/11/2021): Added automatically from request for surgery [id number] Neuropathy 03/11/2021 Chronic pain 03/11/2021 Acute pain due to trauma 03/11/2021 Syncope and collapse 03/11/2021 Irritable bowel syndrome (IBS) 03/11/2021 History of colon cancer 04/28/2019 Overview (04/28/2019): Added automatically from request for surgery [id number] Neutropenia, drug-induced 09/21/2016 Vaginal atrophy 09/21/2016 Pulmonary nodules 07/12/2016 Palmar plantar erythrodysaesthesia 05/02/2016 Chronic diarrhea 04/12/2016 History of ETOH abuse 04/12/2016 Rectal cancer 02/15/2016 Encounters Date Type Department Care Team Description 04/16/2025 1:00 PM CDT Therapy [facility] [place] [address] Kristopher Gordon, PT Other displaced fracture of upper end of right humerus, subsequent encounter for fracture with routine healing (Primary Dx) 04/13/2025 9:30 AM CDT Therapy [facility] - [place] [address] Chandler Begum, PT Other displaced fracture of upper end of right humerus, subsequent encounter for fracture with routine healing (Primary Dx) 04/08/2025 9:15 AM CDT Therapy [facility] [place] [address] Lynn Carmona, METAL BENDING MACHINE OPERATOR Other displaced fracture of upper end of right humerus, subsequent encounter for fracture with routine healing (Primary Dx) 04/06/2025 9:30 AM CDT Therapy [facility] [place] [address] Kristopher Gordon, PT Other displaced fracture of upper end of right humerus, subsequent encounter for fracture with routine healing (Primary Dx) 03/31/2025 9:30 AM CDT Therapy [facility] [place] [address] Kristopher Gordon, PT Other displaced fracture of upper end of right humerus, subsequent encounter for fracture with routine healing (Primary Dx) 03/25/2025 9:15 AM CDT Therapy [facility] - [place] [address] Lynn Carmona, METAL BENDING MACHINE OPERATOR Other displaced fracture of upper end of right humerus, subsequent encounter for fracture with routine healing (Primary Dx) 03/23/2025 9:30 AM CDT Therapy [facility] - [place] [address] [place] [address] Kristopher Gordon, PT Other displaced fracture of upper end of right humerus, subsequent encounter for fracture with routine healing (Primary Dx) 03/20/2025 9:15 AM CDT Therapy [facility] - [place] [address] [place] [address] Lynn Carmona, METAL BENDING MACHINE OPERATOR Other displaced fracture of upper end of right humerus, subsequent encounter for fracture with routine healing (Primary Dx) 03/19/2025 Results Follow-Up [facility] [address] [place] [address] Medical Office [address] [place] [address] Alirio Miranda MD Clostridium difficile Toxin/GDH with Reflex to PCR Stool 03/18/2025 9:15 AM CDT Therapy [facility] [place] [address] Chandler Begum, PT Other displaced fracture of upper end of right humerus, subsequent encounter for fracture with routine healing (Primary Dx) 03/16/2025 Orders Only [facility] [address] [place] [address] Medical Office [address] [place] [address] Teressa Doshi NP Chronic diarrhea 03/13/2025 9:30 AM CDT Office Visit [facility] [address] [place] [address] Medical Office [address] [place] [address] Alirio Miranda MD Low anterior resection syndrome (Primary Dx); Diarrhea, unspecified type; Chronic diarrhea 03/13/2025 Telephone [facility] 12th [place] [address] [place] [address] Becky Mario 03/10/2025 9:15 AM CDT Therapy [facility] [place] [address] Lynn Carmona, METAL BENDING MACHINE OPERATOR Other displaced fracture of upper end of right humerus, subsequent encounter for fracture with routine healing (Primary Dx) 03/06/2025 8:30 AM CDT Therapy [facility] [place] [address] Lynn Carmona, MARIELA Other displaced fracture of upper end of right humerus, subsequent encounter for fracture with routine healing (Primary Dx) 03/04/2025 8:30 AM CDT Therapy [facility] [place] [address] Lynn Carmona, METAL BENDING MACHINE OPERATOR Other displaced fracture of upper end of right humerus, subsequent encounter for fracture with routine healing (Primary Dx) 02/23/2025 11:30 AM CDT Therapy [facility] Therapy [place] [address] [address] [place] [address] HeidiKristopher, PT Other displaced fracture of upper end of right humerus, subsequent encounter for fracture with routine healing (Primary Dx) 02/23/2025 Plan of Care Documentation [facility] [address] [place] [address] from Last 3 Months Immunizations Immunization Administration [...] on file Legal 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 Gender Identity Not on file Sexual Orientation [...] Fall Risk Assessment 07/18/2024 07/18/2023 Influenza Vaccine (#1) 2025 , 07/20/2020, 08/12/2019, Additional history exists Osteoporosis Screening-Bone [...] 07/18/2022, 07/16/2019 Medical Devices Implanted Type Area Second Miller Device Identifier Shelf Expiration Date Model / Serial / Lot [employer]/Richco/Ort ho [id number] Ludlow-Nail 10mm 33cm Tibia Nail Intramedullary Titanium - [id number] Implanted:Qty: 1 on 03/11/2021 by Earnestine Carmona MD at [facility] Right: Tibia [employer]/O rtho [id number] 07/30/2029 [id number] / / [id number] [employer]/Rich[employer]/Ort ho [id number] Evos 3.5mm 32mm Self Tap Cortex Screw Bone Sterile - [id number] Implanted:Qty: 2 on 03/11/2021 by Earnestine Carmona MD at [facility] Right: Tibia [employer]/O rtho [id number] / / [employer]/Rich[employer]/Ort ho [id number] 5mm 25mm Low Profile Internal Hex Femur Screw Bone Trigen - [id number] Implanted:Qty: 1 on 03/11/2021 by Earnestine Carmona MD at [facility] Right: Tibia [employer]/O rtho [id number] / / [employer]/Ort ho [id number] 5mm 42.5mm Low Profile Internal Hex Femur Screw Bone Trigen - [id number] Implanted:Qty: 1 on 03/11/2021 by Earnestine Carmona MD at [facility] Right: Tibia [employer]o [id number] / / [employer]/Rich[employer]/Ort ho [id number] 5mm 30mm Low Profile Internal Hex Femur Screw Bone Trigen - [id number] Implanted:Qty: 1 on 03/11/2021 by Earnestine Carmona MD at [facility] Right: Tibia [employer]tho [id number] / / [employer]Rich[employer]/Ort ho [id number] 5mm 35mm Low Profile Internal Hex Femur Screw Bone Trigen - [id number] Implanted:Qty: 2 on 03/11/2021 by Earnestine Carmona MD at [facility] Right: Tibia [employer]o [id number] / / [employer]/Ort ho [id number] 5mm 45mm Low Profile Internal Hex Femur Screw Bone Trigen - [id number] Implanted:Qty: 1 on 03/11/2021 by Earnestine Carmona MD at [facility] Right: Tibia [employer]/O rtho [id number] / / Procedures Procedure Name Priority Date/Time [...] CDT) C difficile Toxins/GDH w/refl to PCR [facility] Comment: CLOSTRIDIUM DIFFICILE TOXIN/GDH W/REFL TO PCR Micro Number: [id number] Test Status: Final Specimen Source: Stool Specimen Quality: Adequate GDH Antigen: Not Detected Toxin A and B: Not Detected COMMENT: No toxigenic C. difficile detected For additional information, please refer to http://education.Revert/faq/KRI882 (This link is being provided for informational/educational purposes only.) Stool 03/18/2025 12:4 6 PM CDT 03/19/2025 2:26 AM CDT Narrative [facility] - 03/19/2025 10:43 AM CDT FASTING:NO FASTING: NO us Alirio Miranda MD LAB MICROBIOLOGY - [employer] NERAL ORDERABLES Final Result [facility] [address] [place] [address] * Dexa TBS Axial Skeleton Bone Density 1 or more sites (06/10/2024 12:30 PM CDT) Anatomical Region Laterality Modality Wrist, Body N/A Radiographic Diandra ging Narrative 06/26/2024 3:02 PM CDT Patient Name: Nisreen Rodney Date of : 1960 Date of scan: 06/10/2024 Bone mineral density was performed on a [employer] Discovery Densitometer. Based on machine cross-calibration and [...] by the International Society of Clinical Densitometry. [id number] us Janet Robison MD IMG DXA PROCEDURES Final Re sult * COLONOSCOPY (07/18/2023 9:47 AM CDT) Anatomical Region Laterality Modality Other Narrative Procedure Note Alirio Miranda MD - 07/18/2023 9:47 AM CDT ENDOSCOPY LAB Patient Name: Nisreen Rodney Procedure Date: 07/18/2023 9:47 AM Date of : 1960 Admit Type: Outpatient Age: 63 Gender: Female Attending MD: Alirio Miranda M.D. Room: [facility] ENDOSCOPY ROOM 03 Note Status: Finalized [...] The scope was passed under direct vision.The [id number] was introduced through the anusand advanced to [...] During normal business hours - [facility] [place]: [phone] After hours, evening, nights, weekends and holidays- Please call the hospital scarifier operator at and ask for the GI fellow hydro electric station operator. Attending Participation: I personally performed the entire procedure. Electronically signed by Alirio Miranda MD Alirio Miranda M.D. 07/18/2023 10:20:18 AM Number of Addenda: 0 Note Initiated On: 07/18/2023 9:47 AM Alirio Miranda MD ENDOSCOPY PROCEDURES Final Result from Last 3 Months or Most Recently Relevant to Health Maintenance Insurance [facility] MEDICARE [facility] MEDICARE [employer] [facility] Advance Directives For more information, please contact: [phone] Documents on File Type Date Recorded Patient Cementer Machine Expl anation ADVANCE DIRECTIVE 04/03/2023 6:23 AM Power of Global Director [employer]-Medical * Full Code (Latest Code Status on File) Date Activated Date Inactivated Comments 07/18/2023 8:31 AM 07/18/2023 3:05 PM * Full Code Date Activated Date Inactivated Comments 07/18/2022 8:55 AM 07/18/2022 3:13 PM * Full Code Date Activated Date Inactivated Comments 03/11/2021 9:56 PM 03/17/2021 8:58 PM * Full Code Date Activated Date Inactivated Comments 07/16/2019 7:21 AM 07/16/2019 2:13 PM Care Teams Car Inspection And Repair Manager Relationship Specialty Start Date End Date Penny Goldman NP [address] [place] [address] [place] [address] PCP - General Nurse Practitioner 02/29/24
--- OUTSIDE RECORDS SUMMARY | 2025-05-13 10:02 | XMS_ITS | Encounter Summary ---
Author Organization [facility] Address [address] [place] [address] Phone Care Team Providers Care Qa Consultant Name Role Phone Penny Goldman NP Primary Care Provider + Encounter Details Date Type Department Care Team (Late st Contact Info) Description 03/19/2025 Results Follow-Up [facility] Gastroenterology [address] [place] [address] Medical Office Building [address], [address] [place] [address] Alirio Miranda MD [address] [place] [address] Clostridium difficile Toxin/GDH with Reflex [...] on file Legal Sex Female 12:17 AM 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
--- OUTSIDE RECORDS SUMMARY | 2025-05-13 10:02 | XMS_ITS ---
Author Organization [facility] Medical Office Building [address] Address [address] [place] [address] Care Team Providers Care Insurance Premium Auditor Name Role Phone Penny Goldman TIRE SPECIALIST Primary Care Provider + Active Problems Problem [...] (06/26/2022): Added automatically from request for surgery [id number] History of rectal cancer 06/26/2022 Overview (06/26/2022): Added automatically from request for surgery [id number] Closed fracture of part of f ibula with tibia, right, initial encounter 03/11/2021 Overview (03/11/2021): Added automatically from request for surgery [id number] Neuropathy 03/11/2021 Chronic pain 03/11/2021 Acute pain due to trauma 03/11/2021 Syncope and collapse 03/11/2021 Irritable bowel syndrome (IBS) 03/11/2021 History of colon cancer 04/28/2019 Overview (04/28/2019): Added automatically from request for surgery [id number] Neutropenia, drug-induced 09/21/2016 Vaginal atrophy 09/21/2016 Pulmonary [...]
--- OUTSIDE RECORDS SUMMARY | 2025-05-13 10:02 | XMS_ITS | Encounter Summary ---
Author Organization 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
--- OUTSIDE RECORDS SUMMARY | 2025-05-13 10:02 | XMS_ITS | Referral Summary ---
Author Organization [facility] Medical Office Building [address] Address [address] [place] [address] Care Team Providers Care Sprinkler Helper Name Role Phone Penny Goldman NP Primary Care Provider + Encounters Date Type Department Care Team Description 04/16/2025 1:00 PM CDT Therapy [facility] [place] [address] Kristopher Gordon, PT Other displaced fracture of upper end of right humerus, subsequent encounter for fracture with routine healing (Primary Dx) 04/13/2025 9:30 AM CDT Therapy [facility] [place] [address] Chandler Begum, PT Other displaced fracture of upper end of right humerus, subsequent encounter for fracture with routine healing (Primary Dx) 04/08/2025 9:15 AM CDT Therapy [facility] [place] [address] Lynn Carmona SCHEDULING CLERK Other displaced fracture of upper end of right humerus, subsequent encounter for fracture with routine healing (Primary Dx) 04/06/2025 9:30 AM CDT Therapy [facility] [place] [address] Kristopher Gordon, PT Other displaced fracture of upper end of right humerus, subsequent encounter for fracture with routine healing (Primary Dx) 03/31/2025 9:30 AM CDT Therapy [facility] - [place] [address] Kristopher Gordon, PT Other displaced fracture of upper end of right humerus, subsequent encounter for fracture with routine healing (Primary Dx) 03/25/2025 9:15 AM CDT Therapy [facility] [place] [address] Lynn Carmona, SCHEDULING CLERK Other displaced fracture of upper end of right humerus, subsequent encounter for fracture with routine healing (Primary Dx) 03/23/2025 9:30 AM CDT Therapy [facility] [place] [address] Kristopher Gordon, PT Other displaced fracture of upper end of right humerus, subsequent encounter for fracture with routine healing (Primary Dx) 03/20/2025 9:15 AM CDT Therapy [facility] [place] [address] Lynn Carmona, SCHEDULING CLERK Other displaced fracture of upper end of right humerus, subsequent encounter for fracture with routine healing (Primary Dx) 03/19/2025 Results Follow-Up [facility] [address] [place] [address] Medical Office [address] [place] [address] Alirio Miranda MD Clostridium difficile Toxin/GDH with Reflex to PCR Stool 03/18/2025 9:15 AM CDT Therapy [facility] [place] [place] [address] Chandler Begum, PT Other displaced fracture of upper end of right humerus, subsequent encounter for fracture with routine healing (Primary Dx) 03/16/2025 Orders Only [facility] [address] [place] [address] Medical Office [address] [place] [address] Teressa Doshi NP Chronic diarrhea 03/13/2025 Telephone [facility] [address] [place] [address] 12th [place] [address] [place] [address] Becky Mario 03/13/2025 9:30 AM CDT Office Visit [facility] [address] [facility] [address] [place] [address] Alirio Miranda MD Low anterior resection syndrome (Primary Dx); Diarrhea, unspecified type; Chronic diarrhea 03/10/2025 9:15 AM CDT Therapy [facility] [place] [address] Lynn Carmona, SCHEDULING CLERK Other displaced fracture of upper end of right humerus, subsequent encounter for fracture with routine healing (Primary Dx) 03/06/2025 8:30 AM CDT Therapy [facility] [place] [address] Lynn Carmona, MARIELA Other displaced fracture of upper end of right humerus, subsequent encounter for fracture with routine healing (Primary Dx) 03/04/2025 8:30 AM CDT Therapy [facility] [place] [address] Lynn Carmona, SCHEDULING CLERK Other displaced fracture of upper end of right humerus, subsequent encounter for fracture with routine healing (Primary Dx) 02/23/2025 Plan of Care Documentation [facility] [place] [address] 02/23/2025 11:30 AM CDT Therapy [facility] [place] [address] Kristopher Gordon, PT Other displaced fracture of upper end of right humerus, subsequent encounter for fracture with routine healing (Primary Dx) from Last 3 Months Allergies [...] (06/26/2022): Added automatically from request for surgery [id number] History of rectal cancer 06/26/2022 Overview (06/26/2022): Added automatically from request for surgery [id number] Closed fracture of part of f ibula with tibia, right, initial encounter 03/11/2021 Overview (03/11/2021): Added automatically from request for surgery [id number] Neuropathy 03/11/2021 Chronic pain 03/11/2021 Acute pain due to trauma 03/11/2021 Syncope and collapse 03/11/2021 Irritable bowel syndrome (IBS) 03/11/2021 History of colon cancer 04/28/2019 Overview (04/28/2019): Added automatically from request for surgery [id number] Neutropenia, drug-induced 09/21/2016 Vaginal atrophy 09/21/2016 Pulmonary [...] file Legal Sex Female 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 Gender Identity Not on file Sexual [...] on file Medical Devices Implanted Type Area Carbonating Stone Cleaner Device Identifier Shelf Expiration Date Model / Serial / Lot [employer]Rich[employer]/Ort ho [id number] Silverado-Nail 10mm 33cm Tibia Nail Intramedullary Titanium - [id number] Implanted:Qty: 1 on 03/11/2021 by Earnestine Carmona MD at [facility] Right: Tibia [employer]/O rtho [id number] 07/30/2029 [id number] / / [id number] [employer]/Ort ho [id number] Evos 3.5mm 32mm Self Tap Cortex Screw Bone Sterile - [id number] Implanted:Qty: 2 on 03/11/2021 by Earnestine Carmona MD at [facility] Right: Tibia [employer]tho [id number] / / [employer]/Rich[employer]/Ort ho [id number] 5mm 25mm Low Profile Internal Hex Femur Screw Bone Trigen - [id number] Implanted:Qty: 1 on 03/11/2021 by Earnestine Carmona MD at [facility] Right: Tibia [employer]o [id number] / / [employer]/Ort ho [id number] 5mm 42.5mm Low Profile Internal Hex Femur Screw Bone Trigen - [id number] Implanted:Qty: 1 on 03/11/2021 by Earnestine Carmona MD at [facility] Right: Tibia [employer]o [id number] / / [employer]/Ort ho [id number] 5mm 30mm Low Profile Internal Hex Femur Screw Bone Trigen - [id number] Implanted:Qty: 1 on 03/11/2021 by Earnestine Carmona MD at [facility] Right: Tibia [employer]o [id number] / / [employer]/Ort ho [id number] 5mm 35mm Low Profile Internal Hex Femur Screw Bone Trigen - [id number] Implanted:Qty: 2 on 03/11/2021 by Earnestine Carmona MD at [facility] Right: Tibia [employer] [id number] / / [employer]/Ort ho [id number] 5mm 45mm Low Profile Internal Hex Femur Screw Bone Trigen - [id number] Implanted:Qty: 1 on 03/11/2021 by Earnestine Carmona MD at [facility] Right: Tibia [employer]o [id number] / / Procedures Procedure Name Priority Date/Time [...] CDT) C difficile Toxins/GDH w/refl to PCR [facility] Comment: CLOSTRIDIUM DIFFICILE TOXIN/GDH W/REFL TO PCR Micro Number: [id number] Test Status: Final Specimen Source: Stool Specimen Quality: Adequate GDH Antigen: Not Detected Toxin A and B: Not Detected COMMENT: No toxigenic C. difficile detected For additional information, please refer to [email or web address]/faq/NCJ634 (This link is being provided for informational/educational purposes only.) Stool 03/18/2025 12:4 6 PM CDT 03/19/2025 2:26 AM CDT Narrative [facility] - 03/19/2025 10:43 AM CDT FASTING:NO FASTING: NO us Alirio Miranda MD LAB MICROBIOLOGY - FlocktoryAL ORDERABLES Final Result [facility] [address] [place] [address] * Dexa TBS Axial Skeleton Bone Density 1 or more sites (06/10/2024 12:30 PM CDT) Anatomical Region Laterality Modality Wrist, Body N/A Radiographic Diandra ging Narrative 06/26/2024 3:02 PM CDT Patient Name: Nisreen Rodney Date of : 1960 Date of scan: 06/10/2024 Bone mineral density was performed on a [employer] Discovery Densitometer. Based on machine cross-calibration and [...] by the International Society of Clinical Densitometry. [id number] us Janet Robison MD IM DXA PROCEDURES Final Re sult * COLONOSCOPY (07/18/2023 9:47 AM CDT) Anatomical Region Laterality Modality Other Narrative Procedure Note Alirio Miranda MD - 07/18/2023 9:47 AM CDT ENDOSCOPY LAB Patient Name: Nisreen Rodney Procedure Date: 07/18/2023 9:47 AM Date of : 1960 Admit Type: Outpatient Age: 63 Gender: Female Attending MD: Alirio Miranda M.D. Room: [facility] ENDOSCOPY ROOM 03 Note Status: [...] The scope was passed under direct vision.The [id number] was introduced through the anusand advanced to [...] business hours - Please call theNurse Coordinator: [phone] After hours, evening, nights, weekends and holidays- Please call the hospital armored machine operator at and ask for the GI fellow food production manager. Attending Participation: I personally performed the entire procedure. Electronically signed by Alirio Miranda MD Alirio Miranda M.D. 07/18/2023 10:20:18 AM Number of Addenda: 0 Note Initiated On: 07/18/2023 9:47 AM Alirio Miranda MD ENDOSCOPY PROCEDURES Final Result from Last 3 Months or Most Recently Relevant to Health Maintenance Insurance [employer] [place] [employer] [facility] Advance Directives For more information, please contact: [phone] Documents on File Type Date Recorded Patient Book Agent Expl anation ADVANCE DIRECTIVE 04/03/2023 6:23 AM Power of [employer] At [employer] * Full Code (Latest Code Status on File) Date Activated Date Inactivated Comments 07/18/2023 8:31 AM 07/18/2023 3:05 PM * Full Code Date Activated Date Inactivated Comments 07/18/2022 8:55 AM 07/18/2022 3:13 PM * Full Code Date Activated Date Inactivated Comments 03/11/2021 9:56 PM 03/17/2021 8:58 PM * Full Code Date Activated Date Inactivated Comments 07/16/2019 7:21 AM 07/16/2019 2:13 PM Care Teams Sprinkler Helper Relationship Specialty Start Date End Date Penny Goldman NP [address] [place] [address] [address] [place] [id number] PCP - General Nurse Practitioner 02/29/24
== END 2025-05-13 09:55 | disposition home or self-care (01) ==
LOC: ANHIMG 09:55
PROVIDERS: PCP Nurse Practitioner Family; Visit Provider Family Medicine
DX: R92.8 Other abnormal and inconclusive findings on diagnostic imaging of breast (principal)
CPT/HCPCS: 76642; 77061; 77065; G0279